=== PATIENT | male | born 1940 | race Caucasian/White ===

== ENCOUNTER → 2020-08-19 08:22 | Outpatient (BNVA) | payer OTHER, SELFPAY | PROVIDERS: PCP Internal Medicine; Referring Provider Internal Medicine; Visit Provider Internal Medicine | DX: I48.21 Permanent atrial fibrillation (principal); Z51.81 Encounter for therapeutic drug level monitoring; Z79.01 Long term (current) use of anticoagulants | CPT/HCPCS: 85610; 99211 ==

== ENCOUNTER → 2020-09-01 13:54 | Outpatient (BNVA) | payer OTHER, MEDICARE, SELFPAY | PROVIDERS: Visit Provider Internal Medicine | DX: I48.21 Permanent atrial fibrillation (principal); Z51.81 Encounter for therapeutic drug level monitoring; Z79.01 Long term (current) use of anticoagulants | CPT/HCPCS: 85610; 99211 ==

== ENCOUNTER → 2020-09-06 11:08 | Outpatient (BNVA) | payer MEDICARE, SELFPAY | PROVIDERS: PCP Internal Medicine; Visit Provider Internal Medicine | DX: I48.21 Permanent atrial fibrillation (principal); Z51.81 Encounter for therapeutic drug level monitoring; Z79.01 Long term (current) use of anticoagulants | CPT/HCPCS: 85610; 99211 ==

== ENCOUNTER → 2020-09-13 14:12 | Outpatient (BNVA) | payer MEDICARE, SELFPAY | PROVIDERS: PCP Internal Medicine; Referring Provider Internal Medicine; Visit Provider Internal Medicine | DX: I48.21 Permanent atrial fibrillation (principal); Z51.81 Encounter for therapeutic drug level monitoring; Z79.01 Long term (current) use of anticoagulants | CPT/HCPCS: 85610; 99211 ==

== ENCOUNTER → 2020-09-24 11:33 | Outpatient (BNVA) | payer MEDICARE, BC, SELFPAY | PROVIDERS: PCP Internal Medicine; Visit Provider Internal Medicine | DX: I48.21 Permanent atrial fibrillation (principal); Z79.01 Long term (current) use of anticoagulants; Z51.81 Encounter for therapeutic drug level monitoring | CPT/HCPCS: 85610; 99211 ==

== ENCOUNTER → 2020-10-07 11:24 | Outpatient (BNVA) | payer MEDICARE, SELFPAY | PROVIDERS: PCP Internal Medicine; Visit Provider Internal Medicine | DX: I48.21 Permanent atrial fibrillation (principal); Z51.81 Encounter for therapeutic drug level monitoring; Z79.01 Long term (current) use of anticoagulants | CPT/HCPCS: 85610; 99212 ==

== ENCOUNTER → 2020-10-11 13:12 | Outpatient (BNVA) | payer MEDICARE, SELFPAY | PROVIDERS: PCP Internal Medicine; Visit Provider Internal Medicine | DX: I48.21 Permanent atrial fibrillation (principal); Z51.81 Encounter for therapeutic drug level monitoring; Z79.01 Long term (current) use of anticoagulants | CPT/HCPCS: 85610; 99211 ==

== ENCOUNTER → 2020-10-18 13:29 | Outpatient (BNVA) | payer MEDICARE, SELFPAY | PROVIDERS: PCP Internal Medicine; Visit Provider Internal Medicine | DX: I48.21 Permanent atrial fibrillation (principal); Z51.81 Encounter for therapeutic drug level monitoring; Z79.01 Long term (current) use of anticoagulants | CPT/HCPCS: 85610; 99211 ==

== ENCOUNTER → 2020-10-26 10:01 | Outpatient (BNVA) | payer MEDICARE, SELFPAY | PROVIDERS: PCP Internal Medicine; Visit Provider Internal Medicine | DX: I48.21 Permanent atrial fibrillation (principal); Z51.81 Encounter for therapeutic drug level monitoring; Z79.01 Long term (current) use of anticoagulants | CPT/HCPCS: 85610; 99211 ==

== ENCOUNTER → 2020-10-28 13:05 | Outpatient (BNVA) | payer MEDICARE, SELFPAY | PROVIDERS: PCP Internal Medicine; Visit Provider Internal Medicine | DX: I48.21 Permanent atrial fibrillation (principal); Z51.81 Encounter for therapeutic drug level monitoring; Z79.01 Long term (current) use of anticoagulants | CPT/HCPCS: 85610; 99211 ==

== ENCOUNTER → 2020-11-09 10:47 | Outpatient (BNVA) | payer MEDICARE, SELFPAY | PROVIDERS: PCP Internal Medicine; Visit Provider Internal Medicine | DX: I48.21 Permanent atrial fibrillation (principal); Z79.01 Long term (current) use of anticoagulants; Z51.81 Encounter for therapeutic drug level monitoring | CPT/HCPCS: 85610; 99211 ==

== ENCOUNTER → 2020-11-11 09:43 | Outpatient (BNVA) | payer MEDICARE, SELFPAY | PROVIDERS: PCP Internal Medicine; Visit Provider Internal Medicine | DX: I48.21 Permanent atrial fibrillation (principal); Z79.01 Long term (current) use of anticoagulants; Z51.81 Encounter for therapeutic drug level monitoring | CPT/HCPCS: 85610; 99211 ==

== ENCOUNTER → 2020-11-15 10:30 | Outpatient (BNVA) | payer MEDICARE, SELFPAY | PROVIDERS: PCP Internal Medicine; Visit Provider Internal Medicine | DX: I48.21 Permanent atrial fibrillation (principal); Z51.81 Encounter for therapeutic drug level monitoring; Z79.01 Long term (current) use of anticoagulants | CPT/HCPCS: 85610; 99211 ==

== ENCOUNTER → 2020-11-25 10:21 | Outpatient (BNVA) | payer MEDICARE, SELFPAY | PROVIDERS: PCP Internal Medicine; Visit Provider Internal Medicine | DX: I48.21 Permanent atrial fibrillation (principal); Z79.01 Long term (current) use of anticoagulants; Z51.81 Encounter for therapeutic drug level monitoring | CPT/HCPCS: 85610; 99211 ==

== ENCOUNTER → 2020-12-09 08:34 | Outpatient (BNVA) | payer MEDICARE, SELFPAY | PROVIDERS: PCP Internal Medicine; Visit Provider Internal Medicine | DX: I48.19 Other persistent atrial fibrillation (principal); Z79.01 Long term (current) use of anticoagulants; Z51.81 Encounter for therapeutic drug level monitoring | CPT/HCPCS: 85610; 99211 ==

== ENCOUNTER → 2020-12-23 08:31 | Outpatient (BNVA) | payer MEDICARE, SELFPAY | PROVIDERS: PCP Internal Medicine; Visit Provider Internal Medicine | DX: I48.21 Permanent atrial fibrillation (principal); Z51.81 Encounter for therapeutic drug level monitoring; Z79.01 Long term (current) use of anticoagulants | CPT/HCPCS: 85610; 99211 ==

== ENCOUNTER → 2021-01-20 07:58 | Outpatient (BNVA) | payer MEDICARE, SELFPAY | PROVIDERS: PCP Internal Medicine; Visit Provider Internal Medicine | DX: I48.21 Permanent atrial fibrillation (principal); Z51.81 Encounter for therapeutic drug level monitoring; Z79.01 Long term (current) use of anticoagulants | CPT/HCPCS: 85610; 99211 ==

== ENCOUNTER → 2021-02-03 08:22 | Outpatient (BNVA) | payer MEDICARE, SELFPAY | PROVIDERS: PCP Internal Medicine; Visit Provider Internal Medicine | DX: I48.21 Permanent atrial fibrillation (principal); Z51.81 Encounter for therapeutic drug level monitoring; Z79.01 Long term (current) use of anticoagulants | CPT/HCPCS: 85610; 99211 ==

== ENCOUNTER → 2021-03-03 08:14 | Outpatient (BNVA) | payer MEDICARE, SELFPAY | PROVIDERS: PCP Internal Medicine; Visit Provider Internal Medicine | DX: I48.21 Permanent atrial fibrillation (principal); Z79.01 Long term (current) use of anticoagulants; Z51.81 Encounter for therapeutic drug level monitoring | CPT/HCPCS: 85610; 99211 ==

== ENCOUNTER 2021-06-07 08:23 | Outpatient (REF) | payer MEDICARE, SELFPAY ==
[2021-06-07 09:30] LABS: MANUAL DIFF FLAG NO
[2021-06-07 09:40] LABS: Basophils Percent Auto 0.5 % (0-2); Eosinophils Absolute Auto 0.2 X10*3/uL (0.0-0.4); Hematocrit 43.1 % (42-52); Hemoglobin 13.8 g/dl (14.0-18.0); Imm Gran Abs Auto 0.03 X10*3/uL (0.00-0.03); Imm Gran Pct Auto 0.5 % (0.0-0.4); Lymphocytes Absolute Auto 1.4 X10*3/uL (1.2-4.9); Lymphocytes Percent Auto 21.6 % (20-40); Mean Corpuscular Hemoglobin 29.3 pg (27.0-33.0); Mean Corpuscular Volume 91.5 fL (80-98); Monocytes Absolute Auto 0.5 X10*3/uL (0.1-1.2); Monocytes Percent Auto 8.3 % (2-11); Neutrophils Absolute Auto 4.2 X10*3/uL (2.0-8.3); Neutrophils Percent Auto 66.1 % (45-73); Platelet Count 160 X10*3/uL (160-400); Red Blood Count 4.71 X10*6/uL (4.60-5.80); Red Cell Distribution Width 13.1 % (11.0-16.0); White Blood Count 6.4 X10*3/uL (4.8-10.8)
[2021-06-07 10:02] LABS: Alanine Aminotransferase 19 U/L (0-40); Albumin Level 4.2 g/dL (3.5-5.0); Alkaline Phosphatase 70 U/L (39-117); Anion Gap 13 (12-20); Aspartate Amino Transferase 20 U/L (5-37); Bilirubin Total 1.5 mg/dL (0.0-1.0); Blood Urea Nitrogen 33 mg/dL (9-16); Carbon Dioxide 25 mmol/L (22-29); Chloride 108 mmol/L (96-108); Cholesterol 198 mg/dL; Estimated Glomerular Filt Rate 36; Glucose Fasting 94 mg/dL (60-99); HDL Cholesterol 52 mg/dL; LDL Cholesterol Calculated 129 mg/dl; Sodium 141 mmol/L (135-145); Total Protein 6.6 g/dL (6.5-8.0); Triglycerides 89 mg/dL
[2021-06-07 10:58] LABS: Glucose Urine UA NEG (NEG); Leukocyte Esterase Urine NEG (NEG); Nitrite Urine NEG (NEG); Specific Gravity - Urine 1.025 (1.005-1.025); Urine Blood NEG (NEG); Urine Ketones NEG (NEG); Urine Protein TRACE MG/DL (NEG-TRACE)
[2021-06-07 11:01] LABS: Appearance Urine CLEAR; Color Urine YELLOW
[2021-06-07 11:18] LABS: RBC Urine 0-2 /HPF (0); Squamous Epithelial Cell Urine TRACE /LPF
== END 2021-06-07 08:24 | disposition home or self-care (01) ==
LOC: HO.LAB 08:23
PROVIDERS: PCP Internal Medicine; Visit Provider Internal Medicine
DX: I48.91 Unspecified atrial fibrillation (principal); Z79.01 Long term (current) use of anticoagulants
CPT/HCPCS: 36415; 80053; 80061; 81001; 85025

== ENCOUNTER 2021-09-13 10:10 | Outpatient (REF) | payer MEDICARE, SELFPAY ==
[2021-09-13 12:07] LABS: Alanine Aminotransferase 17 U/L (0-40); Albumin Level 4.5 g/dL (3.5-5.0); Alkaline Phosphatase 67 U/L (39-117); Anion Gap 12 (12-20); Aspartate Amino Transferase 21 U/L (5-37); Bilirubin Total 1.1 mg/dL (0.0-1.0); Blood Urea Nitrogen 28 mg/dL (9-16); Calcium 9.1 mg/dL (8.4-10.2); Carbon Dioxide 26 mmol/L (22-29); Chloride 107 mmol/L (96-108); Estimated Glomerular Filt Rate 38; Glucose Random 100 mg/dL (60-115); Potassium 4.5 mmol/L (3.3-5.1); Sodium 140 mmol/L (135-145); Total Protein 6.7 g/dL (6.5-8.0)
== END 2021-09-13 10:11 | disposition home or self-care (01) ==
LOC: HO.HMGCLDS 10:10
PROVIDERS: PCP Internal Medicine; Visit Provider Internal Medicine
DX: I48.91 Unspecified atrial fibrillation (principal); N18.30 Chronic kidney disease, stage 3 unspecified; Z79.01 Long term (current) use of anticoagulants
CPT/HCPCS: 36415; 80053

== ENCOUNTER 2022-06-09 07:17 | Outpatient (REF) | payer MEDICARE, SELFPAY ==
[2022-06-09 07:51] LABS: Hematocrit 40.6 % (42.0-52.0); Hemoglobin 13.3 g/dl (14.0-18.0); Mean Corpuscular HGB Conc 32.8 g/dl (31.0-36.0); Mean Corpuscular Hemoglobin 29.7 pg (27.0-33.0); Mean Corpuscular Volume 90.6 fL (80.0-98.0); Mean Platelet Volume 12.3 fL (9.4-12.4); Platelet Count 212 X10*3/uL (160-400); Red Blood Count 4.48 X10*6/uL (4.60-5.80); White Blood Count 8.1 X10*3/uL (4.8-10.8)
[2022-06-09 08:22] LABS: Alanine Aminotransferase 19 U/L (0-40); Albumin Level 4.3 g/dL (3.5-5.0); Alkaline Phosphatase 80 U/L (39-117); Anion Gap 13 (12-20); Aspartate Amino Transferase 21 U/L (5-37); Bilirubin Total 1.3 mg/dL (0.0-1.0); Blood Urea Nitrogen 29 mg/dL (9-16); Calcium 8.9 mg/dL (8.4-10.2); Carbon Dioxide 24 mmol/L (22-29); Chloride 109 mmol/L (96-108); Cholesterol 184 mg/dL; Estimated Glomerular Filt Rate 38; Glucose Fasting 101 mg/dL (60-99); HDL Cholesterol 46 mg/dL; LDL Cholesterol Calculated 121 mg/dl; Potassium 4.5 mmol/L (3.3-5.1); Sodium 141 mmol/L (135-145); Total Protein 6.6 g/dL (6.5-8.0); Triglycerides 85 mg/dL
== END 2022-06-09 07:18 | disposition home or self-care (01) ==
LOC: HO.LAB 07:17
PROVIDERS: PCP Internal Medicine; Visit Provider Internal Medicine
DX: C64.9 Malignant neoplasm of unspecified kidney, except renal pelvis (principal); N18.30 Chronic kidney disease, stage 3 unspecified; M10.9 Gout, unspecified; Z79.01 Long term (current) use of anticoagulants
CPT/HCPCS: 36415; 80053; 80061; 85027

== ENCOUNTER 2022-12-12 06:29 | Outpatient (REF) | payer MEDICARE, SELFPAY ==
[2022-12-12 06:34] LABS: MANUAL DIFF FLAG NO
[2022-12-12 07:33] LABS: Basophils Percent Auto 0.5 % (0-2); Eosinophils Absolute Auto 0.3 X10*3/uL (0.0-0.4); Eosinophils Percent Auto 3.4 % (0-4); Hematocrit 42.2 % (42.0-52.0); Hemoglobin 13.8 g/dl (14.0-18.0); Imm Gran Abs Auto 0.02 X10*3/uL (0.00-0.03); Imm Gran Pct Auto 0.2 % (0.0-0.4); Lymphocytes Absolute Auto 2.5 X10*3/uL (1.2-4.9); Lymphocytes Percent Auto 31.5 % (20-40); Mean Corpuscular HGB Conc 32.7 g/dl (31.0-36.0); Mean Corpuscular Hemoglobin 29.4 pg (27.0-33.0); Mean Corpuscular Volume 89.8 fL (80.0-98.0); Mean Platelet Volume 12.9 fL (9.4-12.4); Monocytes Absolute Auto 0.7 X10*3/uL (0.1-1.2); Monocytes Percent Auto 8.1 % (2-11); Neutrophils Absolute Auto 4.5 x10*3/uL (2.0-8.3); Neutrophils Percent Auto 56.3 % (45-73); Platelet Count 181 X10*3/uL (160-400); Red Cell Distribution Width 13.2 % (11.0-16.0)
[2022-12-12 08:02] LABS: Alanine Aminotransferase 18 U/L (0-40); Albumin Level 4.3 g/dL (3.5-5.0); Alkaline Phosphatase 69 U/L (39-117); Anion Gap 14 (12-20); Aspartate Amino Transferase 19 U/L (5-37); Bilirubin Total 1.2 mg/dL (0.0-1.0); Blood Urea Nitrogen 38 mg/dL (9-16); Calcium 9.1 mg/dL (8.4-10.2); Carbon Dioxide 26 mmol/L (22-29); Chloride 108 mmol/L (96-108); Cholesterol 201 mg/dL; Estimated Glomerular Filt Rate 32; Glucose Fasting 92 mg/dL (60-99); HDL Cholesterol 45 mg/dL; LDL Cholesterol Calculated 134 mg/dl; Potassium 4.5 mmol/L (3.3-5.1); Sodium 143 mmol/L (135-145); Total Protein 6.5 g/dL (6.5-8.0); Triglycerides 110 mg/dL
== END 2022-12-12 06:30 | disposition home or self-care (01) ==
LOC: HO.LAB 06:29
PROVIDERS: PCP Internal Medicine; Visit Provider Internal Medicine
DX: I48.91 Unspecified atrial fibrillation (principal); M10.9 Gout, unspecified; N18.30 Chronic kidney disease, stage 3 unspecified; Z79.01 Long term (current) use of anticoagulants
CPT/HCPCS: 36415; 80053; 80061; 85025

== ENCOUNTER 2022-12-25 13:45 | Outpatient (REF) | payer MEDICARE, SELFPAY ==
--- NOTE | ~2022-12-25 | US_ITS ---
EXAMINATION: US RETROPERITONEAL (RENAL) CLINICAL INFORMATION: Chronic kidney disease, stage 3 unspecified. COMPARISON: None TECHNIQUE: Real-time imaging of the kidneys. FINDINGS: RIGHT KIDNEY: Surgically absent. LEFT KIDNEY: 10.5 x 5.0 x 6.0 cm (SAG x AP x TRV). The kidney is normal in size, contour, and echogenicity. Renal cortical thickness is normal. No hydronephrosis. There is a minimally complex cyst seen at the lower pole of the left kidney measuring 0.9 cm that may have a tiny septation with a small focus of calcification in the wall or possibly an adjacent small stone. Multiple small, nonobstructing stones are seen ranging in size from 1-2 mm. No renal masses. US/US renal LT IMPRESSION: 1. Status post right nephrectomy. 2. Multiple tiny, nonobstructing left renal calculi. 3. Tiny minimally complex cyst lower pole left kidney. This is Bosniak class II and no additional imaging or follow up should be needed.
== END 2022-12-25 13:46 | disposition home or self-care (01) ==
LOC: HO.HMGCX 13:45
PROVIDERS: PCP Internal Medicine; Visit Provider Internal Medicine
DX: N18.30 Chronic kidney disease, stage 3 unspecified (principal); N20.0 Calculus of kidney
CPT/HCPCS: 76775

== ENCOUNTER 2023-06-12 07:08 | Outpatient (REF) | payer MEDICARE, SELFPAY ==
[2023-06-12 07:21] LABS: MANUAL DIFF FLAG NO
[2023-06-12 08:01] LABS: Basophils Percent Auto 0.5 % (0-2); Eosinophils Absolute Auto 0.3 X10*3/uL (0.0-0.4); Eosinophils Percent Auto 3.3 % (0-4); Hematocrit 41.5 % (42.0-52.0); Hemoglobin 13.3 g/dl (14.0-18.0); Imm Gran Abs Auto 0.03 X10*3/uL (0.00-0.03); Imm Gran Pct Auto 0.3 % (0.0-0.4); Mean Corpuscular Hemoglobin 29.4 pg (27.0-33.0); Mean Corpuscular Volume 91.6 fL (80.0-98.0); Mean Platelet Volume 12.4 fL (9.4-12.4); Monocytes Absolute Auto 0.8 X10*3/uL (0.1-1.2); Monocytes Percent Auto 9.2 % (2-11); Neutrophils Absolute Auto 5.6 x10*3/uL (2.0-8.3); Neutrophils Percent Auto 63.7 % (45-73); Platelet Count 160 X10*3/uL (160-400); Red Blood Count 4.53 X10*6/uL (4.60-5.80); Red Cell Distribution Width 13.5 % (11.0-16.0); White Blood Count 8.8 X10*3/uL (4.8-10.8)
[2023-06-12 08:41] LABS: Alanine Aminotransferase 19 U/L (0-40); Albumin Level 4.2 g/dL (3.5-5.0); Alkaline Phosphatase 73 U/L (39-117); Anion Gap 11 (12-20); Aspartate Amino Transferase 20 U/L (5-37); Bilirubin Total 1.3 mg/dL (0.0-1.0); Blood Urea Nitrogen 26 mg/dL (9-16); Calcium 9.3 mg/dL (8.4-10.2); Carbon Dioxide 25 mmol/L (22-29); Chloride 110 mmol/L (96-108); Cholesterol 183 mg/dL; Estimated Glomerular Filt Rate 40; Glucose Fasting 97 mg/dL (60-99); HDL Cholesterol 52 mg/dL; LDL Cholesterol Calculated 115 mg/dl; Potassium 4.1 mmol/L (3.3-5.1); Sodium 142 mmol/L (135-145); Total Protein 6.9 g/dL (6.5-8.0); Triglycerides 84 mg/dL
== END 2023-06-12 07:09 | disposition home or self-care (01) ==
LOC: HO.LAB 07:08
PROVIDERS: PCP Internal Medicine; Visit Provider Internal Medicine
DX: C34.90 Malignant neoplasm of unspecified part of unspecified bronchus or lung (principal); N18.30 Chronic kidney disease, stage 3 unspecified; I48.91 Unspecified atrial fibrillation
CPT/HCPCS: 36415; 80053; 80061; 85025

== ENCOUNTER 2023-06-18 08:50 | Outpatient (AMB) | payer MEDICARE, SELFPAY ==
--- NOTE | 2023-06-18 08:52 | A.OFFVIS_ITS ---
Intake Vital Signs 06/18/23 08:57 Height 5 ft 6 in Weight 150 lb 8 oz BMI 24.3 BP 124/78 Blood Pressure Location Lt brachial Position Sitting Pulse 76 Pulse Source Pulse Oximeter Pulse Oximetry (%) 98 Intake Visit Reasons: AWV Intake Note: patient is here for AWV Accompanied by: Self / Same As Patient Allergies No Known Allergies Allergy (Verified 06/18/23 08:52) Medication List - Last Reconciled 06/18/23 by Adriana Cox MD apixaban (Eliquis) 5 mg PO BID metoprolol succinate ER 25 mg PO DAILY multivitamin 1 tab PO DAILY vitamin B complex 1 tab PO .every other day Do you need a note to return to daycare/school/sports/work: No HPI AWV HPI Details Pt presents for annualInitiated the conversation about Advanced Directives. Advanced Directives help? patients prepare for current and future d ecisions about their medical treatment? and place of care. Discussed with patient that it is a process where a patients? current condition and prognosis are reviewed, their wishes for information? regarding their illness are elicited, and likely medical dilemmas are presented? and options discussed. The form can be amended as needed, reviewed yearly and? make changes as needed IPPE/AWV ? year old presents? for her ? Annual? Wellness Visit, initial visit.? Medical / Social History Reviewed? Past Medical History ?Yes? . ? [place]? of Care / Care Team list updated ?Yes . ? Surgical/Hospitalization? History ?Yes . ? Current Medications? (including OTC and supplements) ?Yes . ? Family History ?Yes? . ? Tobacco? Control form ?Yes . ? AUDIT-C (Alcohol use) form? ?Yes . ? Illicit drug use in Social? History ?Yes . ? Current diagnosis of? depression? ?No ? Appropriate PHQ2/PHQ9? completed ?Yes . ? Data entered by ?Medical? Manager Cancer and reviewed by provider ? Fall Risk ? Fall? History? Have you had any falls with? injury in the past year? ?No . ? Have you had two or more? falls in the past year? ?No . ? Fall Risk Assessment: ?No? falls in the past year . ? HRA filled out by? the patient, reviewed by Provider and scanned. ? IPPE/AWV ? Balance? Romberg? ?Yes . ? Tandem? walk ?Yes . ? Walk and? Turn ?Yes . ? Rise from? sit to stand ?Yes . ?Vision? Corrective? lens ?Yes ? Vision? screen ? Up-to-date, has an appointment [] for vision? screening and glaucoma screening ?Hearing? Whisper? test ?pass .? Initiated the conversation about Advanced Directives. Advanced Directives help? patients prepare for current and future decisions about their medical treatment? and place of care. Discussed with patient that it is a process where a patients? current condition and prognosis are reviewed, their wishes for information? regarding their illness are elicited, and likely medical dilemmas are presented? and options discussed. The form can be amended as needed, reviewed yearly and? make changes as needed Written? Plan?Completed. See Patient? Documents. [facility] Medical History Annual physical exam Atrial fibrillation Chronic renal disease, stage 3, moderately decreased glomerular filtration rate (GFR) between 30-59 mL/min/1.73 square meter Gross hematuria Lung cancer Nephrolithiasis Renal cell cancer Surgical History H/O colonoscopy History of parathyroidectomy Family History Father No problems noted. Mother Heart problem Social History Housing: House Alcohol intake: current Alcohol intake frequency: a few times a week Alcohol type: wine Patient Tobacco Use Status: Former Tobacco user e-Cigarette/Vaping Use: Never Used Current occupational status: retired Cognitive needs: No Hearing needs: No Vision needs: No Questionnaire Medicare Wellness Checkup What is your age?: 81 or older What gender do you identify with?: male During the past 4 weeks, how much have you been bothered by emotional problems such as feeling anxious, depressed, irritable, sad or downhearted, and blue?: not at all During the past 4 weeks, has your physical & emotional health limited your social activities with family, friends, neighbors, or groups?: not at all During the past 4 weeks, how much bodily pain have you generally had?: no pain During the past 4 weeks, was someone available to help you if you needed & wanted help?: yes, as much as I wanted During the past 4 weeks, what was the hardest physical activity you could do for at least 2 minutes?: heavy Can you get to places out of walking distance without help? (For eg., can you travel alone on buses, taxis or drive your car?): Yes Can you go shopping for groceries or clothes without someone's help?: Yes Can you prepare your own meals?: Yes Can you do your housework without help?: Yes Because of any health problems, do you need the help of another person with your personal care needs such as eating, bathing, dressing or getting around the house?: No Can you handle your own money without help?: Yes During the past 4 weeks, how would you rate your health in general?: very good During the past 4 weeks how have things been going for you?: pretty well Are you having difficulties driving your car?: no Do you always fasten your seat belt when you are in a car?: yes, usually During past 4 weeks, have you been bothered by the following: never: Falling or dizzy when standing up and Sexual problems? Mini Mental State Exam (MMSE) Orientation What is the (year) (season) (date) (day) (month)?: year, season, date, day and month Where are we (state) (county) (town or city) (hospital) (floor)?: state, county, town or city, hospital/clinic and floor Registration Name of 3 unrelated objects clearly and slowly, then ask patient to repeat all 3 of them. (1st repeat determines score. Make sure they can repeat all three): object 1, object 2 and object 3 Attention & Calculation (CHOOSE ONE) Spell WORLD backwards (DLROW): 5 letters Recall Ask patient to repeat the 3 items from question #3.: object 1, object 2 and object 3 Language Show patient a wristwatch & ask what it is. Repeat for pencil.: watch and pencil Ask the patient to repeat the phrase 'No ifs, ands, or buts' after you.: correct Ask the patient to 'take a piece of paper with their right hand' 'fold paper in half' 'place paper on floor': take paper in right hand, fold paper in half and place paper on floor Print the sentence 'CLOSE YOUR EYES' on a piece. If patient actually closes eyes then score.: followed written direction Give patient a blank piece of paper & ask to write a sentence. Score if it cont ains a noun & verb.: sentence contains subject and verb Score Score: 29 Review of Systems Const All systems reviewed & are unremarkable except as noted in HPI and below Reports no additional complaints Eyes Reports no additional complaints ENT Reports no additional complaints Card Reports no additional complaints Resp Reports no additional complaints GI Reports no additional complaints Reports no additional complaints Physical Exam Vital Signs: Last Vital Signs Pulse 76 06/18/23 08:57 BP 124/78 06/18/23 08:57 Pulse Ox 98 06/18/23 08:57 BMI result Body Mass Index 24.3 Const General: no acute distress HEENT Head: Yes normal to inspection Eyes General: appearance normal, both eyes and all related structures Neck Neck: Yes no lymphadenopathy and Yes supple Resp Effort & Inspection: normal respiratory effort Auscultation: clear to auscultation bilaterally Cardio Rhythm: regular rhythm Heart sounds: S1 normal heart sound present and S2 normal heart sound present Extrem General: Yes no clubbing, cyanosis or edema Assessment & Plan Assessment & Plan (1) Chronic renal disease, stage 3, moderately decreased glomerular filtration rate (GFR) between 30-59 mL/min/1.73 square meter: Comment: Monitor renal function function Code(s): N18.30 - Chronic kidney disease, stage 3 unspecified (2) Atrial fibrillation: Comment: Dr. Pham Code(s): I48.91 - Unspecified atrial fibrillation Plan: Continue Eliquis and metoprolol (3) Annual physical exam: Code(s): Z00.00 - Encounter for general adult medical examination without abnormal findings Plan: Well-balanced diet regular physical activity discussed with the patient (4) Lung cancer: Comment: s/p R lobectomy for non small ca 10/2020 f/u [facility], CT SCAN Q 6 months Code(s): C34.90 - Malignant neoplasm of unspecified part of unspecified bronchus or lung (5) Renal cell cancer: Comment: s/p R nephrectomy 09/2020 f/u [facility] Code(s): C64.9 - Malignant neoplasm of unspecified kidney, except renal pelvis (6) Anemia: Code(s): D64.9 - Anemia, unspecified Plan: Check iron studies B12 level (7) Abdominal pain: Code(s): R10.9 - Unspecified abdominal pain Plan: Check H pylori Orders: Orders Vitamin B12 and Folate Today D64.9 - Anemia, unspecified, Z00.00 - Encounter for general adult medical examination without abnormal findings IRON PROFILE Today D64.9 - Anemia, unspecified, Z00.00 - Encounter for general adult medical examination without abnormal findings H pylori Ag Stool Today D64.9 - Anemia, unspecified, R10.9 - Unspecified abdominal pain PSA,Total (Free>4and<10) Today D64.9 - Anemia, unspecified TSH reflex Free T4 Today D64.9 - Anemia, unspecified Coding Level of Care Code Medicare Subsequent (G0439) Diagnoses Chronic renal disease, stage 3, moderately decreased glomerular filtration rate (GFR) between 30-59 mL/min/1.73 square meter N18.30 Atrial fibrillation I48.91 Annual physical exam Z00.00 Lung cancer C34.90 Renal cell cancer C64.9 Anemia D64.9 Abdominal pain R10.9 CPT Codes Advance Care Planning - Time spent: 1-15 minutes, not on file ([id number]) Advance Care Planning Advance Care Planning discussion: Exists, not on file Forms completed: Health Care Proxy Time spent: 1-15 minutes, not on file
[2023-06-18 08:57] VITALS: BP 124/78; PULSE 76; O2SAT 98; BMI 24.3
== END 2023-06-18 09:38 | disposition home or self-care (01) ==
PROVIDERS: Visit Provider Internal Medicine
DX: Z00.00 Encounter for general adult medical examination without abnormal findings (principal); N18.30 Chronic kidney disease, stage 3 unspecified; C34.90 Malignant neoplasm of unspecified part of unspecified bronchus or lung; I48.91 Unspecified atrial fibrillation; C64.9 Malignant neoplasm of unspecified kidney, except renal pelvis; D64.9 Anemia, unspecified; R10.9 Unspecified abdominal pain
CPT/HCPCS: 1124F; G0439

== ENCOUNTER 2023-06-18 09:25 | Outpatient (REF) | payer MEDICARE, SELFPAY ==
[2023-06-18 12:29] LABS: PSA,Total (Free>4and<10) 3.96 ng/mL (0.00-4.00)
[2023-06-18 13:13] LABS: Iron 88 mcg/dL (45-160); Percent Iron Saturation 31 % (15-50); Total Iron Binding Capacity 287 mcg/dL (228-428); Unsaturated Iron Binding 199 ug/dL
[2023-06-18 13:17] LABS: TSH reflex Free T4 0.73 uIU/mL (0.32-4.0)
[2023-06-18 13:39] LABS: Folate 15.8 ng/mL (> or = 4.0); Vitamin B12 994 pg/mL (200-900)
== END 2023-06-18 09:26 | disposition home or self-care (01) ==
LOC: HO.HMGCLDS 09:25
PROVIDERS: PCP Internal Medicine; Visit Provider Internal Medicine
DX: Z00.00 Encounter for general adult medical examination without abnormal findings (principal); Z12.5 Encounter for screening for malignant neoplasm of prostate; D64.9 Anemia, unspecified
CPT/HCPCS: 36415; 82607; 82746; 83540; 84153; 84443

== ENCOUNTER 2023-06-19 09:26 | Outpatient (REF) | payer MEDICARE, SELFPAY | END 2023-06-19 09:27 | disposition home or self-care (01) | LOC: HO.LNP 09:26 | PROVIDERS: Visit Provider Internal Medicine | DX: R10.9 Unspecified abdominal pain (principal); D64.9 Anemia, unspecified | CPT/HCPCS: 87338 ==

== ENCOUNTER 2023-09-19 10:16 | Outpatient (AMB) | payer MEDICARE, SELFPAY ==
--- NOTE | 2023-09-19 10:24 | MHC.OFFVIS ---
Intake Vital Signs 09/19/23 10:34 Height 5 ft 6 in Weight 151 lb BMI 24.4 BP 127/66 Blood Pressure Location Rt brachial Position Sitting Pulse 69 Intake Visit Reasons: Hernia Intake Note: This patient presents for an assessment for a hernia. Patient c/o; reports acid reflux, ? hernia, reports no bulge. Physical Medicine Specialist Required: No Accompanied by: Self / Same As Patient Allergies No Known Allergies Allergy (Verified 09/19/23 10:31) Medication List - Last Reconciled 09/19/23 by Nakul Harrington MD amoxicillin 1,000 mg (2 x 500 mg) PO BID 2 weeks apixaban (Eliquis) 5 mg PO BID clarithromycin 500 mg PO BID metoprolol succinate ER 25 mg PO DAILY multivitamin 1 tab PO DAILY omeprazole 20 mg PO DAILY vitamin B complex 1 tab PO .every other day HPI Hernia HPI Details 83-year-old male self-referred for a left inguinal hernia. He has noticed this reducible mass in his left groin for about a year and a half now. He says that this causes some discomfort whenever he is coughing. He is contemplating on having this repaired. He denies GI complaints He does have a history of a right nephrectomy for renal cell cancer in [email or web address] in 2020. He had a lobectomy for some lung cancer as well in the same year. He is on anticoagulation with Eliquis for atrial fibrillation. He otherwise feels well overall and says he is still very active. [facility] Medical History (Updated 09/19/23 @ 10:52 by Nakul Harrington MD) Left inguinal hernia Chronic renal disease, stage 3, moderately decreased glomerular filtration rate (GFR) between 30-59 mL/min/1.73 square meter Annual physical exam Lung cancer Renal cell cancer Nephrolithiasis Gross hematuria Atrial fibrillation Surgical History H/O colonoscopy History of parathyroidectomy Family History (Updated 09/19/23 @ 10:36 by MARILIN Hansen) Father No problems noted. Mother Heart problem Brother Prostate cancer metastatic to bone Social History Housing: House Alcohol intake: current Alcohol intake frequency: a few times a week Alcohol type: wine Patient Tobacco Use Status: Former Tobacco user e-Cigarette/Vaping Use: Never Used Current occupational status: retired Cognitive needs: No Hearing needs: No Vision needs: No Review of Systems Const Denies chills and Denies fever(s) Card Denies chest pain, Denies dyspnea and Denies dyspnea on exertion Resp Denies cough, Denies dyspnea and Denies dyspnea on exertion GI Denies hematochezia and Denies change in bowel habits Denies hematuria and Denies difficulty urinating Musc Denies back pain and Denies limited range of motion Neuro Denies focal weakness and Denies convulsions Psych Denies depression and Denies mood swings Physical Exam Const General: comfortable and no acute distress Orientation/consciousness: patient oriented x3 Neck Neck: Yes no lymphadenopathy Resp Auscultation: clear to auscultation bilaterally Cardio Rhythm: regular rhythm GI Other: Reducible right inguinal hernia, large, more obvious with Valsalva Palpation (GI): Soft to palpation, nontender and no guarding Neuro General: patient oriented x3 Assessment & Plan Assessment & Plan (1) Left inguinal hernia: Code(s): K40.90 - Unilateral inguinal hernia, without obstruction or gangrene, not specified as recurrent Plan: He has a large reducible left inguinal hernia. He now wants to proceed with repair. He says that he this cause some discomfort when he coughs. I explained the technique of repair of the hernia with mesh. I reviewed the risks including but not limited to bleeding, infections, due to other organs including bowel, poor healing, recurrence, postop pain, as well as the benefits and alternatives. He wants to proceed He is on Eliquis so we will hold this for 2 days prior to his procedure. We will discuss this with his primary care physician. Coding Level of Care Code New Pt Level 3 (16914) Diagnoses Left inguinal hernia K40.90
[2023-09-19 10:34] VITALS: BP 127/66; PULSE 69; BMI 24.4
== END 2023-09-19 10:48 | disposition home or self-care (01) ==
PROVIDERS: PCP Internal Medicine; Visit Provider Surgery
DX: K40.90 Unilateral inguinal hernia, without obstruction or gangrene, not specified as recurrent (principal)
CPT/HCPCS: 99203

== ENCOUNTER → 2023-09-19 10:16 | Outpatient (BNVA) | payer MEDICARE, SELFPAY | PROVIDERS: PCP Internal Medicine; Visit Provider Surgery | DX: K40.90 Unilateral inguinal hernia, without obstruction or gangrene, not specified as recurrent (principal); I48.91 Unspecified atrial fibrillation; Z79.01 Long term (current) use of anticoagulants | CPT/HCPCS: 99202 ==

== ENCOUNTER 2023-12-04 05:49 | Day surgery (SDC) | payer MEDICARE, SELFPAY ==
[2023-11-30 11:21] VITALS: BMI 24.4
[2023-12-04] VITALS (7 sets, daily range): BP systolic 105–143; BP diastolic 47–102; PULSE 68–83; RESP 16–18; TEMP 36.3–36.5; O2SAT 96–100; BMI 25.1
--- NOTE | 2023-12-04 06:02 | ECG_ITS ---
Test Reason : afib Blood Pressure : / mmHG Vent. Rate : 067 BPM Atrial Rate : 000 BPM P-R Int : 000 ms QRS Dur : 074 ms QT Int : 400 ms P-R-T Axes : 000 037 001 degrees QTc Int : 422 ms Atrial fibrillation with premature ventricular or aberrantly conducted complexes Abnormal ECG No previous ECGs available Referred By: Carolin Jaquez Electronically Signed By:OIL COBOS
[2023-12-04] MEDS: Lactated Ringers 1,000 ML 100 ML IVCONT (06:21)
--- NOTE | 2023-12-04 07:25 | P.CONAN_ITS ---
Documented by User: Carolin Jaquez NP 12/03/23 09:04 HPI - Anesthesia Eval Consult details Narrative: 83yo M for Left Hernia Repair Inguinal with mesh Eliquis for afib CKD St 3 Lung cancer s/p Right lobectomy 2019 [facility] Active Problems Active Problems: All Active Problems (Updated 09/19/23 @ 10:52 by Nakul Harrington MD) Left inguinal hernia (Acute) Abdominal pain (Acute) Anemia (Acute) Nephrolithiasis (Acute) Gout (Acute) Chronic renal disease, stage 3, moderately decreased glomerular filtration rate (GFR) between 30-59 mL/min/1.73 square meter (Acute) Atrial fibrillation (Acute) Annual physical exam (Acute) Lung cancer (Acute) Renal cell cancer (Acute) Current use of anticoagulant therapy (Acute) Current use of anticoagulant therapy (Acute) Past Medical History Medical History Left inguinal hernia Chronic renal disease, stage 3, moderately decreased glomerular filtration rate (GFR) between 30-59 mL/min/1.73 square meter Annual physical exam Lung cancer Renal cell cancer Nephrolithiasis Gross hematuria Atrial fibrillation Family History Family History (Updated 09/19/23 @ 10:36 by MARILIN Hansen) Father No problems noted. Mother Heart problem Brother Prostate cancer metastatic to bone Surgical History Surgical History (Updated 12/04/23 @ 06:39 by Hleen Jolley RN) History of lobectomy of lung History of right nephrectomy H/O colonoscopy History of parathyroidectomy Social History Social History Housing: House Alcohol intake: current Alcohol intake frequency: a few times a week Alcohol type: wine Patient Tobacco Use Status: Former Tobacco user e-Cigarette/Vaping Use: Never Used Are you DNR?: No Advance Directives: No Advance Directives Information Provided: Yes Nutrition Risks: No Nutritional Risk Current occupational status: retired Cognitive needs: No Hearing needs: No Vision needs: No Meds Allergies Allergy/AdvReac Type Severity Reaction Status Date / Time No Known Allergies Allergy Verified 12/04/23 06:15 Home Medications Medication Instructions Recorded Confirmed Last Taken Type multivitamin 1 tab PO DAILY 06/16/22 12/04/23 Unknown History Exam Height,Weight and Vital Signs: Height 5 ft 6 in Weight 68.492 kg Pertinent Lab Results Pertinent Lab Results: Laboratory Tests 06/12/23 07:20 WBC 8.8 Hgb 13.3 L Hct 41.5 L Plt Count 160 Sodium 142 Potassium 4.1 Chloride 110 H Carbon Dioxide 25 BUN 26 H Creatinine 1.66 H Assessment and Plan Assessment Anesthesia Assessment: Chart Reviewed Documented by User: Anna Rivera, 12/04/23 07:29 [facility] Past Medical History Medical History Left inguinal hernia Chronic renal disease, stage 3, moderately decreased glomerular filtration rate (GFR) between 30-59 mL/min/1.73 square meter Annual physical exam Lung cancer Renal cell cancer Nephrolithiasis Gross hematuria Atrial fibrillation Family History Family History (Updated 09/19/23 @ 10:36 by MARILIN Hansen) Father No problems noted. Mother Heart problem Brother Prostate cancer metastatic to bone Family history of problems with anesthesia: No Surgical History Surgical History (Updated 12/04/23 @ 06:39 by Helen Jolley RN) History of lobectomy of lung History of right nephrectomy H/O colonoscopy History of parathyroidectomy History of Problems with Anesthesia: No Social History Social History Housing: House Alcohol intake: current Alcohol intake frequency: a few times a week Alcohol type: wine Patient Tobacco Use Status: Former Tobacco user e-Cigarette/Vaping Use: Never Used Are you DNR?: No Advance Directives: No Advance Directives Information Provided: Yes Nutrition Risks: No Nutritional Risk Current occupational status: retired Cognitive needs: No Hearing needs: No Vision needs: No Meds Allergies Allergy/AdvReac Type Severity Reaction Status Date / Time No Known Allergies Allergy Verified 12/04/23 06:15 Home Medications Medication Instructions Recorded Confirmed Last Taken Type multivitamin 1 tab PO DAILY 06/16/22 12/04/23 Unknown History Exam Exam Date and Time: December 04, [id number] Height,Weight and Vital Signs: Height 5 ft 6 in Weight 68.492 kg Height 5 ft 6 in Weight 70.67 kg Vital Signs Temperature 97.6 F 12/04/23 06:15 Pulse Rate 73 12/04/23 06:15 Respiratory Rate 18 12/04/23 06:15 Blood Pressure 141/102 H 12/04/23 06:15 Pulse Oximetry 98 12/04/23 06:15 Oxygen Delivery Method Room Air 12/04/23 06:15 Temperature 97.6 F 12/04/23 06:15 Pulse Rate 73 12/04/23 06:15 Respiratory Rate 18 12/04/23 06:15 Blood Pressure 143/61 H 12/04/23 06:36 Pulse Oximetry 98 12/04/23 06:15 Oxygen Delivery Method Room Air 12/04/23 06:15 Airway Mallampati Class: I TM Dist: >3cm Neck ROM: Full Denture: Upper and Lower Heart: S1S2 Lungs: CTAB Assessment and Plan Assessment Anesthesia Assessment: Anesthesia Plan Discussed and Chart Reviewed Final Anesthetic Review Family History of Problems with Anesthesia: No History of Problems with Anesthesia: No NPO: Yes ASA Class: III Final Preanesthetic Review: No Changes in Pt Med Stat, Meds/Allgs Chart Reviewed, Consent Obtained/Reviewed and Anes Risks/Benef Reviewed Patient Risk: Intermediate Procedure Risk: Low Anesthetic Plan Anesthetic Plan: Agree w/ Assess. and Plan Disposition: Standard PACU
--- NOTE | 2023-12-04 07:41 | MHC.SHP ---
Pre-Procedural Eval Section A Date of Service: 12/04/23 Section B Chief Complaint: Unilateral inguinal hernia, without obstruction Details of Present Illness: Has a reducible mass on the left groin Relevant Social History: None Present Medications: see Short Stay Collaborative assessment (Gout, chronic renal disease, atrial fibrillation, was on Eliquis) Allergies: Allergies Allergy/AdvReac Type Severity Reaction Status Date / Time No Known Allergies Allergy Verified 12/04/23 06:15 Review of Systems Sugical H&P ROS: Negative: Constitution, Cardiovascular, Respiratory, Neurological, Psychiatric, Hem-Onc, Allergic/Immunologic, Gastrointestinal, Genitourinary, Musculoskeletal, Integumentary, Endocrine and Eyes/Ears/Nose/Throat Exam Surgical H&P Exam: Normal: HEENT, Normal: Heart, Normal: Lungs, Normal: Extremities, Normal: Skin and Normal: Neurological and Significant Findings: Abdomen (Reducible left inguinal hernia) Plan Diagnosis/Plan: Unchanged I have reviewed the history and physical and performed a pertinent physical examination on my patient. No changes have occurred unless specified. Time Spent With Patient Time: Total time managing care of this patient today ____ minutes.
--- NOTE | 2023-12-04 08:17 | P.OP_ITS ---
Operative Note Operative Note Date of Service: 12/04/23 Narrative: Preop diagnosis: Left Inguinal hernia Postop diagnosis: Left inguinal hernia, direct Procedure: Repair of left inguinal hernia with mesh Surgeon: Nakul Harrington MD registrar assistant: STEPHANIE Peterson The patient is an 83-year-old male with a reducible mass on the left groin consistent with a left inguinal hernia. He wanted to proceed with repair. He understood the technique of repair with mesh he was aware of the risks, benefits, and alternatives. He is Eliquis was on hold for 48 hours He was brought to the operating room. He was placed supine under general anesthesia via laryngeal mask airway. The right groin was prepped and draped in the usual sterile fashion. A surgical time-out was done. The patient received cefazolin 2 g IV preoperatively. I infiltrated the planned line of incision with lidocaine 1%. I made a short incision along an imaginary line from the anterior superior iliac spine to the pubic ramus using a blade 15. This was carried down through the full-thickness of the skin and subcutaneous fat with electrocautery. I visualized the external oblique aponeurosis. I bluntly dissected this with a gauze to expose the external ring. I then made an incision on the external oblique aponeurosis using a blade 15 and extended this inferomedially to connect with the external ring. The inguinal canal was therefore entered . I bluntly dissected the spermatic cord and its contents with an index finger until was able to pass a Khloe drain around this. This Khloe drain was used for retraction. I identified the vas deferens and its accompanying vessels. I was able to visualized the fat containing hernia. This was along thefloor of the inguinal canal and was therefore a direct hernia. I gently this from the rest of the cord contents with blunt dissection all the way down to the level of the floor.. I was able to reduce the hernia completely. I reinforced the defect on the floor with a large-sized Prolene plug. The plug was secured with Prolene 2 sutures to the shelving edge of the inguinal laterally and the internal oblique superiorly and medially using the inner leaves of the plug. I then used a keyhole mesh to reinforce the en tire floor. The tails of the mesh were passed around the cord at the level of the internal ring. I secured these together with Prolene 2 sutures. I then secured the mesh to the shelving edge of the inguinal ligament laterally and the internal oblique superiorly and medially as well as the pubic ramus inferomedially with Prolene 2-0 sutures . I observed for hemostasis. I then irrigated. Once hemostasis was confirmed, I closed the external oblique aponeurosis with a running Polysorb 2-0 stitch to re-create the external ring. The subcutaneous layer was reapposed with Polysorb 3-0 interrupted sutures. Skin closure was achieved with Polysorb 4-0 subcuticular running sutures. Steri-Strips and dressings were applied. The area was infiltrated with Marcaine 0.5% for postop analgesia. The procedure was completed. The patient tolerated the procedure well. There were no immediate complications. Initial and final counts of sponges and instruments were correct. Estimated blood loss was about 10 cc. The patient was extubated without difficulty and transferred to the recovery room with stable vital signs.
[2023-12-04] MEDS: oxyCODONE HCl Immed Release 5 MG TABLET PO (08:48)
== END 2023-12-04 09:31 | disposition home or self-care (01) ==
PROVIDERS: PCP Internal Medicine; Visit Provider Surgery
PROC: (CPT 49505; principal; 2023-12-04 07:30)
DX: K40.90 Unilateral inguinal hernia, without obstruction or gangrene, not specified as recurrent (principal); I48.91 Unspecified atrial fibrillation; N18.30 Chronic kidney disease, stage 3 unspecified; Z85.528 Personal history of other malignant neoplasm of kidney; Z90.5 Acquired absence of kidney; Z87.891 Personal history of nicotine dependence; Z85.118 Personal history of other malignant neoplasm of bronchus and lung; Z79.01 Long term (current) use of anticoagulants; Z79.899 Other long term (current) drug therapy
CPT/HCPCS: 49505; 93005; J0131; J0690; J1100; J2371; J2405; J2704; J2795; J3010

== ENCOUNTER → 2023-12-04 05:49 | Outpatient (BNV) | payer MEDICARE, SELFPAY | PROVIDERS: PCP Internal Medicine; Visit Provider Surgery | DX: K40.90 Unilateral inguinal hernia, without obstruction or gangrene, not specified as recurrent (principal) | CPT/HCPCS: 49505 ==

== ENCOUNTER → 2023-12-04 06:02 | Outpatient (BNV) | payer MEDICARE, SELFPAY | PROVIDERS: PCP Internal Medicine; Visit Provider Internal Medicine | DX: I48.91 Unspecified atrial fibrillation (principal); R94.31 Abnormal electrocardiogram [ECG] [EKG] | CPT/HCPCS: 93010 ==

== ENCOUNTER 2023-12-17 13:16 | Outpatient (AMB) | payer MEDICARE, SELFPAY ==
--- NOTE | 2023-12-17 13:18 | MHC.OFFVIS ---
Intake Vital Signs 12/17/23 13:25 Weight 149 lb BP 137/79 Blood Pressure Location Rt brachial Position Sitting Pulse 89 Intake Visit Reasons: S/P LIH w/mesh Intake Note: Patient is seen in office for post op assessment post left inguinal hernia repair. Pt c/o: reports no complaints at this time pertaining to surgery. Underwriting Analyst Required: No Accompanied by: Self / Same As Patient Allergies No Known Allergies Allergy (Verified 12/17/23 13:26) HPI S/P LIH w/mesh HPI Details He underwent repair of a left inguinal hernia with mesh last December 04, 2022. He is here for a postop visit. He states he is doing well at this time. He denies any significant pain. He has good GI functions. [facility] Medical History Left inguinal hernia Chronic renal disease, stage 3, moderately decreased glomerular filtration rate (GFR) between 30-59 mL/min/1.73 square meter Annual physical exam Lung cancer Renal cell cancer Nephrolithiasis Gross hematuria Atrial fibrillation Surgical History Hx of left inguinal hernia repair (12/04/23) History of lobectomy of lung History of right nephrectomy H/O colonoscopy History of parathyroidectomy Family History Father No problems noted. Mother Heart problem Brother Prostate cancer metastatic to bone Social History Housing: House Alcohol intake: current Alcohol intake frequency: a few times a week Alcohol type: wine Patient Tobacco Use Status: Former Tobacco user e-Cigarette/Vaping Use: Never Used Current occupational status: retired Cognitive needs: No Hearing needs: No Vision needs: No Review of Systems Const Denies chills and Denies fever(s) Card Denies chest pain, Denies dyspnea and Denies dyspnea on exertion Resp Denies cough, Denies dyspnea and Denies dyspnea on exertion GI Denies hematochezia and Denies change in bowel habits Denies hematuria and Denies difficulty urinating Musc Denies back pain and Denies limited range of motion Neuro Denies focal weakness and Denies convulsions Psych Denies depression and Denies mood swings Physical Exam Const General: comfortable and no acute distress GI Other: Left inguinal hernia repair site incision clean, repair intact, not infected Palpation (GI): Soft to palpation, not firm and nontender Assessment & Plan Assessment & Plan (1) Left inguinal hernia: Code(s): K40.90 - Unilateral inguinal hernia, without obstruction or gangrene, not specified as recurrent Plan: Status post repair with mesh. His incision is well healed. The repair site is intact. I would advised him to avoid lifting of anything more than 20 lb for at least 3 more weeks. He can otherwise follow up on a p.r.n. basis. Coding Level of Care Code Global (14238) Diagnoses Left inguinal hernia K40.90
[2023-12-17 13:25] VITALS: BP 137/79; PULSE 89
== END 2023-12-17 13:33 | disposition home or self-care (01) ==
PROVIDERS: PCP Internal Medicine; Visit Provider Surgery
DX: K40.90 Unilateral inguinal hernia, without obstruction or gangrene, not specified as recurrent (principal)
CPT/HCPCS: 99024

== ENCOUNTER → 2023-12-17 13:16 | Outpatient (BNVA) | payer MEDICARE, SELFPAY | PROVIDERS: PCP Internal Medicine; Visit Provider Surgery | DX: Z48.815 Encounter for surgical aftercare following surgery on the digestive system (principal); Z98.890 Other specified postprocedural states | CPT/HCPCS: 99212 ==

== ENCOUNTER 2024-02-29 14:20 | Outpatient (AMB) | payer MEDICARE, SELFPAY ==
--- NOTE | 2024-02-29 14:34 | MHC.PC.OV ---
Vital Signs 02/29/24 14:36 Height 5 ft 6 in Weight 153 lb BMI 24.7 BP 118/76 Blood Pressure Location Lt brachial Position Sitting Pulse 95 Pulse Source Pulse Oximeter Pulse Oximetry (%) 96 Oxygen Delivery Method Room Air Intake Visit Reasons: Swollen foot Intake Note: Pt is here today for a sick visit. Pt c/o R foot pain and swelling. Allergies No Known Allergies Allergy (Verified 02/29/24 14:37) Medication List - Last Reconciled 02/29/24 by Adriana Cox MD apixaban (Eliquis) 5 mg PO BID metoprolol succinate ER 25 mg PO DAILY multivitamin 1 tab PO DAILY oxycodone-acetaminophen 5-325 mg (Percocet) 1 tab PO Q4-6H PRN prednisone orally daily; 4 tabl x 3days, 3 tabl qd x 3 days, then 2 tabl qd for 2 days, then 1 tabl qd x 3 days Tobacco use date assessed: 02/29/24 Dental Screening Dental Screen Date: 02/29/24 Did you have a dental visit in the last 12 months?: Yes Did you have a dental problem in the last 6 months where you did not have access to dental care?: No Was dental information given to patient?: Patient has dentist HPI Swollen foot HPI Details Pt c/o R foot dorsum swelling and pain for 1 day. Pt has been eating more seafood lately. he has a history of gout in past the last 1 a few years ago. AFib is stable on metoprolol . patient is anticoagulated on Eliquis [facility] Medical History Left inguinal hernia Chronic renal disease, stage 3, moderately decreased glomerular filtration rate (GFR) between 30-59 mL/min/1.73 square meter Annual physical exam Lung cancer Renal cell cancer Nephrolithiasis Gross hematuria Atrial fibrillation Surgical History Hx of left inguinal hernia repair (12/04/23) History of lobectomy of lung History of right nephrectomy H/O colonoscopy History of parathyroidectomy Family History Father No problems noted. Mother Heart problem Brother Prostate cancer metastatic to bone Social History Housing: House Alcohol intake: current Alcohol intake frequency: a few times a week Alcohol type: wine Patient Tobacco Use Status: Former Tobacco user e-Cigarette/Vaping Use: Never Used Current occupational status: retired Cognitive needs: No Hearing needs: No Vision needs: No Questionnaire PHQ-9 Over the last 2 weeks, how often have you been bothered by any of the following problems? 1. Little interest or pleasure in doing things: not at all 2. Feeling down, depressed, or hopeless: not at all 3. Trouble falling or staying asleep, or sleeping too much: not at all 4. Feeling tired or having little energy: not at all 5. Poor appetite or overeating: not at all 6. Feeling bad about yourself - or that you are a failure or have let yourself or your family down: not at all 7. Trouble concentrating on things, such as reading the newspaper or watching television: not at all 8. Moving or speaking so slowly that other people could have noticed. Or the opposite - being so fidgety or restless that you have been moving around a lot more than usual: not at all 9. Thoughts that you would be better off or of hurting yourself in some way: not at all Total score: 0 Depression Screening Interpretation: Negative Depression Screening Done: Yes Source: Developed by Drs. Gray Carmichael, Roxanna Bacon, Paulie John and colleagues, with an educational desmond from [employer]. Thrive Questionnaire Date Thrive assessed: 02/29/24 I am a: Patient What is your living situation today?: I have a steady place to live Within the past 12 months, did the food you bought not last and you didn't have the money to get more?: Never true Within the past 12 months, did you worry whether your food would run out before you got money to buy more?: Never true Do you have trouble paying for medicines?: No Do you have trouble getting transportation to medical appointments?: No Do you have trouble paying your heating and electricity bill?: No Do you have trouble taking care of your child, family member or friend?: No Do you have trouble with day-to-day activities such as bathing, preparing meals, shopping, managing finances, etc.?: No Are you currently unemployed and looking for a job?: No Are you interested in more education?: No Please select the resources that you would like help with: None THRIVE Score: 0 AUDIT C Alcohol Use Questionnaire (AUDIT-C) 1. How often do you have a drink containing alcohol?: Never 3. How often do you have six or more drinks on one occasion?: Never Total Score: 0 TARA-7 AMB Questionnaire TARA-7 Date TARA - 7 assessed: 02/29/24 Feeling nervous, anxious, or on edge: 0 = Not at all Not being able to stop or control worryin = Not at all Worrying too much about different things: 0 = Not at all Trouble relaxin = Not at all Being so restless that it is hard to sit still: 0 = Not at all Becoming easily annoyed or irritable: 0 = Not at all Feeling afraid as if something awful might happen: 0 = Not at all Total TARA-7 score (0-4 normal; 5-9 mild; 10-14 moderate; 15-21 severe): 0 Source: Developed by Drs. Gray Carmichael, Roxanna Bacon, Paulie John and colleagues, with an educational desmond from [employer]. Review of Systems Const All systems reviewed & are unremarkable except as noted in HPI and below Reports no additional complaints Eyes Reports no additional complaints ENT Reports no additional complaints Card Reports no additional complaints Resp Reports no additional complaints GI Reports no additional complaints Reports no additional complaints Musc Reports no additional complaints Physical exam (Primary Care) Vital Signs: Last Vital Signs Pulse 95 02/29/24 14:36 BP 118/76 02/29/24 14:36 Pulse Ox 96 02/29/24 14:36 Oxygen Delivery Method Room Air 02/29/24 14:36 BMI result Body Mass Index 24.7 Tobacco/Smoking Status: Tobacco use Status Tobacco use date assessed 02/29/24 02/29/24 14:43 Patient Tobacco Use Status Former Tobacco user 02/29/24 14:34 e-Cigarette/Vaping Use Never Used 02/29/24 14:34 PHQ-9: PHQ-9 Score PHQ-9: Total score 0 02/29/24 14:43 Depression Screening Interpretation: Negative Thrive Assessment: Date of Thrive Assessment Date Thrive assessed 02/29/24 02/29/24 14:43 Const General: no acute distress HENMT Face and sinus: Yes normal facial exam Eyes General: appearance normal, both eyes and all related structures Resp Effort & Inspection: normal respiratory effort Auscultation: clear to auscultation bilaterally Cardio Rhythm: regular rhythm Heart sounds: S1 normal heart sound present and S2 normal heart sound present Extrem Other: Dorsum of right foot soft tissue swelling erythema warmth and tenderness Assessment and Plan Assessment & Plan (1) Atrial fibrillation: Comment: Dr. Pham Code(s): I48.91 - Unspecified atrial fibrillation Plan: Continue metoprolol and Eliquis (2) Chronic renal disease, stage 3, moderately decreased glomerular filtration rate (GFR) between 30-59 mL/min/1.73 square meter: Comment: Monitor renal function function Code(s): N18.30 - Chronic kidney disease, stage 3 unspecified Plan: Check renal function avoid nephrotoxins (3) Gout: Code(s): M10.9 - Gout, unspecified Plan: Prednisone taper is prescribed. uric acid level and comprehensive panel will be checked today Orders: Orders Comprehensive Met. Panel Today I48.91 - Unspecified atrial fibrillation, M10.9 - Gout, unspecified, N18.30 - Chronic kidney disease, stage 3 unspecified Uric Acid Today I48.91 - Unspecified atrial fibrillation, M10.9 - Gout, unspecified, N18.30 - Chronic kidney disease, stage 3 unspecified Complete Blood Count Auto Diff Today I48.91 - Unspecified atrial fibrillation, M10.9 - Gout, unspecified, N18.30 - Chronic kidney disease, stage 3 unspecified Medications: New prednisone orally daily; 4 tabl x 3days, 3 tabl qd x 3 days, then 2 tabl qd for 2 days, then 1 tabl qd x 3 days 30 tabs 0RF Coding Level of Care Code Est Pt Level 4 (82299) Diagnoses Atrial fibrillation I48.91 Chronic renal disease, stage 3, moderately decreased glomerular filtration rate (GFR) between 30-59 mL/min/1.73 square meter N18.30 Gout M10.9
[2024-02-29 14:36] VITALS: BP 118/76; PULSE 95; O2SAT 96; BMI 24.7
== END 2024-02-29 15:18 | disposition home or self-care (01) ==
PROVIDERS: PCP Internal Medicine; Visit Provider Internal Medicine
DX: I48.91 Unspecified atrial fibrillation (principal); N18.30 Chronic kidney disease, stage 3 unspecified; M10.9 Gout, unspecified
CPT/HCPCS: 99214

== ENCOUNTER 2024-02-29 15:15 | Outpatient (REF) | payer MEDICARE, SELFPAY ==
[2024-02-29 16:16] LABS: MANUAL DIFF FLAG NO
[2024-02-29 16:34] LABS: Basophils Percent Auto 0.4 % (0-2); Eosinophils Absolute Auto 0.2 X10*3/uL (0.0-0.4); Eosinophils Percent Auto 2.3 % (0-4); Hematocrit 40.5 % (42.0-52.0); Hemoglobin 13.4 g/dl (14.0-18.0); Imm Gran Abs Auto 0.02 X10*3/uL (0.00-0.03); Imm Gran Pct Auto 0.2 % (0.0-0.4); Lymphocytes Absolute Auto 1.8 X10*3/uL (1.2-4.9); Lymphocytes Percent Auto 18.6 % (20-40); Mean Corpuscular HGB Conc 33.1 g/dl (31.0-36.0); Mean Corpuscular Hemoglobin 30.1 pg (27.0-33.0); Monocytes Percent Auto 10.2 % (2-11); Neutrophils Absolute Auto 6.5 x10*3/uL (2.0-8.3); Neutrophils Percent Auto 68.3 % (45-73); Platelet Count 162 X10*3/uL (160-400); Red Blood Count 4.45 X10*6/uL (4.60-5.80); Red Cell Distribution Width 13.8 % (11.0-16.0); White Blood Count 9.5 X10*3/uL (4.8-10.8)
[2024-02-29 16:54] LABS: Alanine Aminotransferase 17 U/L (0-40); Albumin Level 4.5 g/dL (3.5-5.0); Alkaline Phosphatase 91 U/L (39-117); Anion Gap 12 (12-20); Aspartate Amino Transferase 23 U/L (5-37); Bilirubin Total 1.1 mg/dL (0.0-1.0); Blood Urea Nitrogen 29 mg/dL (9-16); Calcium 9.1 mg/dL (8.4-10.2); Carbon Dioxide 26 mmol/L (22-29); Chloride 107 mmol/L (96-108); Estimated Glomerular Filt Rate 46; Glucose Random 86 mg/dL (60-115); Potassium 4.6 mmol/L (3.3-5.1); Sodium 140 mmol/L (135-145); Total Protein 7.4 g/dL (6.5-8.0); Uric Acid 7.3 mg/dL (3.4-7.0)
== END 2024-02-29 15:16 | disposition home or self-care (01) ==
LOC: HO.HMGCLDS 15:15
PROVIDERS: PCP Internal Medicine; Visit Provider Internal Medicine
DX: N18.30 Chronic kidney disease, stage 3 unspecified (principal); I48.91 Unspecified atrial fibrillation; M10.9 Gout, unspecified
CPT/HCPCS: 36415; 80053; 84550; 85025

== ENCOUNTER 2024-06-02 08:59 | Outpatient (AMB) | payer MEDICARE, SELFPAY ==
[2024-06-02 09:27] VITALS: BP 122/74; PULSE 89; TEMP 36.4; O2SAT 99; BMI 24.2
--- NOTE | 2024-06-02 09:27 | AM.OFFWIN_ITS ---
Intake Vital Signs 06/02/24 09:27 Height 5 ft 6 in Weight 150 lb BMI 24.2 BP 122/74 Blood Pressure Location Lt brachial Position Sitting Pulse 89 Pulse Source Pulse Oximeter Temp 97.6 F Temp Source Oral Pulse Oximetry (%) 99 Oxygen Delivery Method Room Air Intake Visit Reasons: EP RT wrist pain/swelling Intake Note: Pt is here today for Rt wrist swelling. No injury mentioned. Pt states woke up and noticed Rt hand swelling, finger tingling. Patient Tobacco Use Status: Former Tobacco user Allergies No Known Allergies Allergy (Verified 06/02/24 09:27) Do you need a note to return to daycare/school/sports/work: No HPI HPI Comments History of Present Illness Details Patient presents to the walk-in today for sick visit Complaining of right hand pain and swelling times 5 days Denies injury. Has been taking [id number] pain reliever as directed by pharmacist. Unable to take nonsteroidal anti-inflammatory medications due to current use of Eliquis. Has been wearing a brace to the right hand/wrist with some improvement Endorses some diffuse generalized joint aches over the last 2 weeks, has been working out in the [employer] a lot recently. Concerned for Lyme exposure Denies known tick bite. Denies rash. Denies fever, chills, weakness, dizziness, headaches PFSH Medical History Left inguinal hernia Chronic renal disease, stage 3, moderately decreased glomerular filtration rate (GFR) between 30-59 mL/min/1.73 square meter Annual physical exam Lung cancer Renal cell cancer Nephrolithiasis Gross hematuria Atrial fibrillation Surgical History Hx of left inguinal hernia repair (12/04/23) History of lobectomy of lung History of right nephrectomy H/O colonoscopy History of parathyroidectomy Family History Father No problems noted. Mother Heart problem Brother Prostate cancer metastatic to bone Social History Housing: House Alcohol intake: current Alcohol intake frequency: a few times a week Alcohol type: wine Patient Tobacco Use Status: Former Tobacco user e-Cigarette/Vaping Use: Never Used Current occupational status: retired Cognitive needs: No Hearing needs: No Vision needs: No Review of Systems Const All systems reviewed & are unremarkable except as noted in HPI and below Physical Exam General: awake, alert, oriented. Answers questions appropriately. Fully engaged in examination. Skin: warm, dry, intact HEENT: Normocephalic. Hearing intact. Cardiac: External chest normal in appearance. Respiratory: No cough, audible wheezing or stridor. Abdomen: without gross distension. MS: Right hand: Generalized swelling. No significant warmth, erythema or tenderness. Stiffness and decreased humidifier attendant strength secondary to inflammation Neurological: Oriented to person, place, time and situation. Thought process intact. No gait abnormalities appreciated. Psychiatric: Appropriate mood and affect. Good judgment and insight. Assessment & Plan Assessment & Plan (1) Right hand pain: Code(s): M79.641 - Pain in right hand Plan Will check labs for tick-borne illness, patient aware he will be called with results Prednisone taper as prescribed, likely swelling and stiffness related to arthritis Continue with brace for comfort Continue with [id number] medications/Tylenol as needed All questions and concerns were answered, patient agrees with the plan. Follow up with PCP as planned Orders: Orders Tick-borne Disease Molecular Today S00.96XA - Insect bite (nonvenomous) of unspecified part of head, initial encounter, W57.XXXA - Bitten or stung by nonvenomous insect and other nonvenomous arthropods, initial encounter Medications: Refilled prednisone orally daily; 4 tabl x 3days, 3 tabl qd x 3 days, then 2 tabl qd for 2 days, then 1 tabl qd x 3 days 30 tabs 0RF Coding Level of Care Code Est Pt Level 3 (82115) Diagnoses Right hand pain M79.641
== END 2024-06-02 10:10 | disposition home or self-care (01) ==
PROVIDERS: PCP Internal Medicine; Visit Provider Registered Nurse Emergency
DX: M79.641 Pain in right hand (principal)
CPT/HCPCS: 99213

== ENCOUNTER 2024-06-02 10:01 | Outpatient (REF) | payer MEDICARE, SELFPAY ==
[2024-06-03 22:24] LABS: A. Phagocytphilium DNA,RT-PCR NOT DETECTED (NOT DETECTED); Babesia Microti DNA, RT-PCR NOT DETECTED (NOT DETECTED); Borrelia Miyamotoi,DNA RT-PCR NOT DETECTED (NOT DETECTED); E.Chaffeensis DNA RT-PCR NOT DETECTED (NOT DETECTED); Lyme(Borrelia ssp)DNA RT-PCR NOT DETECTED (NOT DETECTED)
== END 2024-06-02 10:02 | disposition home or self-care (01) ==
LOC: HO.HMGCLDS 10:01
PROVIDERS: PCP Internal Medicine; Visit Provider Registered Nurse Emergency
DX: S00.96XA Insect bite (nonvenomous) of unspecified part of head, initial encounter (principal); W57.XXXA Bitten or stung by nonvenomous insect and other nonvenomous arthropods, initial encounter; Y93.9 Activity, unspecified; Y92.9 Unspecified place or not applicable; Y99.9 Unspecified external cause status
CPT/HCPCS: 36415; 87468; 87469; 87478; 87484; 87798

== ENCOUNTER 2024-06-25 07:18 | Outpatient (REF) | payer MEDICARE, SELFPAY ==
[2024-06-25 07:34] LABS: MANUAL DIFF FLAG NO
[2024-06-25 07:54] LABS: Basophils Percent Auto 0.4 % (0-2); Eosinophils Absolute Auto 0.2 X10*3/uL (0.0-0.4); Eosinophils Percent Auto 2.4 % (0-4); Hematocrit 38.6 % (42.0-52.0); Hemoglobin 12.7 g/dl (14.0-18.0); Imm Gran Abs Auto 0.03 X10*3/uL (0.00-0.03); Imm Gran Pct Auto 0.4 % (0.0-0.4); Lymphocytes Absolute Auto 1.6 X10*3/uL (1.2-4.9); Lymphocytes Percent Auto 19.3 % (20-40); Mean Corpuscular HGB Conc 32.9 g/dl (31.0-36.0); Mean Corpuscular Hemoglobin 29.9 pg (27.0-33.0); Mean Corpuscular Volume 90.8 fL (80.0-98.0); Mean Platelet Volume 11.6 fL (9.4-12.4); Monocytes Absolute Auto 0.8 X10*3/uL (0.1-1.2); Monocytes Percent Auto 9.6 % (2-11); Neutrophils Absolute Auto 5.7 x10*3/uL (2.0-8.3); Neutrophils Percent Auto 67.9 % (45-73); Platelet Count 161 X10*3/uL (160-400); Red Blood Count 4.25 X10*6/uL (4.60-5.80); Red Cell Distribution Width 13.3 % (11.0-16.0); White Blood Count 8.3 X10*3/uL (4.8-10.8)
[2024-06-25 08:13] LABS: Rheumatoid Factor < 13.0 IU/mL (<15.0)
[2024-06-25 08:16] LABS: Alanine Aminotransferase 27 U/L (0-40); Albumin Level 4.1 g/dL (3.5-5.0); Alkaline Phosphatase 91 U/L (39-117); Anion Gap 14 (12-20); Aspartate Amino Transferase 20 U/L (5-37); Bilirubin Total 1.1 mg/dL (0.0-1.0); Blood Urea Nitrogen 26 mg/dL (9-16); C Reactive Protein 3.92 mg/dL (< or = 0.50); Calcium 9.5 mg/dL (8.4-10.2); Carbon Dioxide 25 mmol/L (22-29); Chloride 107 mmol/L (96-108); Cholesterol 170 mg/dL (<200); Estimated Glomerular Filt Rate 44; Glucose Fasting 99 mg/dL (60-99); HDL Cholesterol 63 mg/dL (>40); Iron 59 mcg/dL (45-160); LDL Cholesterol Calculated 95 mg/dL (<100); Percent Iron Saturation 24 % (15-50); Potassium 4.5 mmol/L (3.3-5.1); Sodium 141 mmol/L (135-145); Total Iron Binding Capacity 250 mcg/dL (228-428); Total Protein 6.8 g/dL (6.5-8.0); Triglycerides 63 mg/dL (<150); Unsaturated Iron Binding 191 ug/dL; Uric Acid 6.4 mg/dL (3.4-7.0)
[2024-06-25 08:38] LABS: Erythrocyte Sedimentation Rate 19 MM/HR (0-15)
[2024-06-26 17:39] LABS: Lyme Abs Screen <0.90 index
[2024-06-30 10:39] LABS: Anti Nuclear Antibody Screen NEGATIVE (NEGATIVE)
[2024-06-30 16:25] LABS: Cyclic Citrullinated Peptide <16 UNITS
== END 2024-06-25 07:19 | disposition home or self-care (01) ==
LOC: HO.LAB 07:18
PROVIDERS: Physical Medicine & Rehabilitation Sports Medicine; PCP Internal Medicine; Visit Provider Internal Medicine
DX: Z00.00 Encounter for general adult medical examination without abnormal findings (principal); I48.91 Unspecified atrial fibrillation; C34.90 Malignant neoplasm of unspecified part of unspecified bronchus or lung; C64.9 Malignant neoplasm of unspecified kidney, except renal pelvis; M1A.0410 Idiopathic chronic gout, right hand, without tophus (tophi)
CPT/HCPCS: 36415; 80053; 80061; 83540; 84550; 85025; 85652; 86038; 86140; 86200; 86431; 86617; 86618

== ENCOUNTER 2024-06-26 08:54 | Outpatient (AMB) | payer MEDICARE, SELFPAY ==
[2024-06-26 08:58] VITALS: BP 124/76; PULSE 105; O2SAT 100; BMI 24.2
--- NOTE | 2024-06-26 08:58 | AM.OFFVISMDC ---
Intake Vital Signs 06/26/24 08:58 Height 5 ft 6 in Weight 150 lb BMI 24.2 BP 124/76 Blood Pressure Location Lt brachial Position Sitting Pulse 105 H Pulse Source Pulse Oximeter Pulse Oximetry (%) 100 Oxygen Delivery Method Room Air Intake Visit Reasons: SWV Allergies No Known Allergies Allergy (Verified 06/26/24 09:02) Medication List - Last Reconciled 06/26/24 by Adriana Cox MD apixaban (Eliquis) 5 mg PO BID metoprolol succinate ER 25 mg PO DAILY multivitamin 1 tab PO DAILY HPI SWV HPI Details Patient presents for annual wellness visit. He complains of persistent right hand soft tissue swelling for the last 2 weeks. He was seen in urgent Care was prescribed prednisone taper with good relief. He reports chronic right wrist pain and has been wearing wrist brace at night for the last few weeks with good relief. Patient was seen by earle Powers x-ray was consistent with osteoarthritis. Patient denies small head and joints pain swelling erythema or warmth Initiated the conversation about Advanced Directives. Advanced Directives help? patients prepare for current and future decisions about their medical treatment? and place of care. Discussed with patient that it is a process where a patients? current condition and prognosis are reviewed, their wishes for information? regarding their illness are elicited, and likely medical dilemmas are presented? and options discussed. The form can be amended as needed, reviewed yearly and? make changes as needed IPPE/AWV ? year old presents? for her ? Annual? Wellness Visit, initial visit.? Medical / Social History Reviewed? Past Medical History ?Yes? . ? [place]? of Care / Care Team list updated ?Yes . ? Surgical/Hospitalization? History ?Yes . ? Current Medications? (including OTC and supplements) ?Yes . ? Family History ?Yes? . ? Tobacco? Control form ?Yes . ? AUDIT-C (Alcohol use) form? ?Yes . ? Illicit drug use in Social? History ?Yes . ? Current diagnosis of? depression? ?No ? Appropriate PHQ2/PHQ9? completed ?Yes . ? Data entered by ?Medical? Pole [employer] and reviewed by provider ? Fall Risk ? Fall? History? Have you had any falls with? injury in the past year? ?No . ? Have you had two or more? falls in the past year? ?No . ? Fall Risk Assessment: ?No? falls in the past year . ? HRA filled out by? the patient, reviewed by Provider and scanned. ? IPPE/AWV ? Balance? [place]? ?Yes . ? Tandem? walk ?Yes . ? Walk and? Turn ?Yes . ? Rise from? sit to stand ?Yes . ?Vision? Corrective? lens ?Yes ? Vision? screen ? Up-to-date, has an appointment [] for vision? screening and glaucoma screening ?Hearing? Whisper? test ?pass .? Initiated the conversation about Advanced Directives. Advanced Directives help? patients prepare for current and future decisions about their medical treatment? and place of care. Discussed with patient that it is a process where a patients? current condition and prognosis are reviewed, their wishes for information? regarding their illness are elicited, and likely medical dilemmas are presented? and options discussed. The form can be amended as needed, reviewed yearly and? make changes as needed Written? Plan?Completed. See Patient? Documents. [facility] Medical History Left inguinal hernia Chronic renal disease, stage 3, moderately decreased glomerular filtration rate (GFR) between 30-59 mL/min/1.73 square meter Annual physical exam Lung cancer Renal cell cancer Nephrolithiasis Gross hematuria Atrial fibrillation Surgical History (Reviewed 06/26/24 @ :25 by Adriana Cox MD) Hx of left inguinal hernia repair (12/04/23) History of lobectomy of lung History of right nephrectomy H/O colonoscopy History of parathyroidectomy Family History Father No problems noted. Mother Heart problem Brother Prostate cancer metastatic to bone Social History Housing: House Alcohol intake: current Alcohol intake frequency: a few times a week Alcohol type: wine Patient Tobacco Use Status: Former Tobacco user e-Cigarette/Vaping Use: Never Used Current occupational status: retired Cognitive needs: No Hearing needs: No Vision needs: No Questionnaire Medicare Wellness Checkup What is your age?: 81 or older What gender do you identify with?: male During the past 4 weeks, how much have you been bothered by emotional problems such as feeling anxious, depressed, irritable, sad or downhearted, and blue?: not at all During the past 4 weeks, has your physical & emotional health limited your social activities with family, friends, neighbors, or groups?: not at all During the past 4 weeks, how much bodily pain have you generally had?: severe pain During the past 4 weeks, was someone available to help you if you needed & wanted help?: yes, as much as I wanted During the past 4 weeks, what was the hardest physical activity you could do for at least 2 minutes?: moderate Can you get to places out of walking distance without help? (For eg., can you travel alone on buses, taxis or drive your car?): Yes Can you go shopping for groceries or clothes without someone's help?: Yes Can you prepare your own meals?: Yes Can you do your housework without help?: Yes Because of any health problems, do you need the help of another person with your personal care needs such as eating, bathing, dressing or getting around the house?: No Can you handle your own money without help?: Yes During the past 4 weeks, how would you rate your health in general?: poor During the past 4 weeks how have things been going for you?: pretty bad Are you having difficulties driving your car?: no Do you always fasten your seat belt when you are in a car?: yes, usually During past 4 weeks, have you been bothered by the following: never: Falling or dizzy when standing up, Sexual problems?, Trouble eating well?, Teeth or denture problems? and Problems using the telephone? and sometimes: Tiredness or fatigue? Have you fallen 2 or more times in the past year?: No Are you afraid of falling?: No Are you a smoker?: no During the past 4 weeks, how many drinks of wine, beer, or other alcoholic beverages did you have?: no alcohol at all Do you exercise for about 20 minutes 3 or more times a week?: yes, most of the time Have you been given information to help with the following?: yes: Hazards in your house that might hurt you? and yes: Keeping track of your medications? How often do you have trouble taking medicines the way you have been told to take them?: I always take medicine as prescribed How confident are you that you can control & manage most of your health problems?: somewhat confident What is your race?: White Mini Mental State Exam (MMSE) Orientation What is the (year) (season) (date) (day) (month)?: year, season, date, day and month Where are we (state) (county) (town or city) (hospital) (floor)?: state, county, town or city, hospital/clinic and floor Registration Name of 3 unrelated objects clearly and slowly, then ask patient to repeat all 3 of them. (1st repeat determines score. Make sure they can repeat all three): object 1, object 2 and object 3 Attention & Calculation (CHOOSE ONE) Spell WORLD backwards (DLROW): 5 letters Recall Ask patient to repeat the 3 items from question #3.: object 1, object 2 and object 3 Language Show patient a wristwatch & ask what it is. Repeat for pencil.: watch and pencil Ask the patient to repeat the phrase 'No ifs, ands, or buts' after you.: correct Ask the patient to 'take a piece of paper with their right hand' 'fold paper in half' 'place paper on floor': take paper in right hand, fold paper in half and place paper on floor Print the sentence 'CLOSE YOUR EYES' on a piece. If patient actually closes eyes then score.: followed written direction Give patient a blank piece of paper & ask to write a sentence. Score if it contains a noun & verb.: sentence contains subject and verb Score Score: 29 Activity of Daily Living Bathing - sponge bath, tub bath or shower: receives no assistance (gets in/out by self, if usual bathing means Dressing - getting clothes from closets & drawers, including inner/outer garments & fasteners.: gets clothes & gets completely dressed without help Toileting - going to the 'toilet room' for urine/bowel elimination & cleaning self/arranging clothes: goes to toilet room, cleans self, arranges clothes without help Transfer: moves in & out of bed and chair without help (may use support object) Continence: controls urination/bowel movements completely by self Feeding: feeds self without help Total Score: 0 Information obtained from: patient Using telephone: independent Traveling: independent Shopping: independent Preparing meals: independent Housework: independent Taking medicine: independent Managing money: independent PHQ-9 Over the last 2 weeks, how often have you been bothered by any of the following problems? 1. Little interest or pleasure in doing things: not at all 2. Feeling down, depressed, or hopeless: not at all 3. Trouble falling or staying asleep, or sleeping too much: nearly every day 4. Feeling tired or having little energy: nearly every day 5. Poor appetite or overeating: not at all 6. Feeling bad about yourself - or that you are a failure or have let yourself or your family down: not at all 7. Trouble concentrating on things, such as reading the newspaper or watching television: not at all 8. Moving or speaking so slowly that other people could have noticed. Or the opposite - being so fidgety or restless that you have been moving around a lot more than usual: not at all 9. Thoughts that you would be better off or of hurting yourself in some way: not at all Total score: 6 Depression Screening Interpretation: Negative Depression Screening Done: Yes Source: Developed by Drs. Gray Carmichael, Roxanna Bacon, Paulie John and colleagues, with an educational desmond from [employer]. Review of Systems Const All systems reviewed & are unremarkable except as noted in HPI and below Reports no additional complaints Eyes Reports no additional complaints ENT Reports no additional complaints Card Reports no additional complaints Resp Reports no additional complaints GI Reports no additional complaints Reports no additional complaints Physical Exam Vital Signs: Last Vital Signs Pulse 105 H 06/26/24 08:58 BP 124/76 06/26/24 08:58 Pulse Ox 100 06/26/24 08:58 Oxygen Delivery Method Room Air 06/26/24 08:58 BMI result Body Mass Index 24.2 Const General: no acute distress and acute distress HEENT Head: Yes normal to inspection Ears: hearing grossly normal bilaterally Eyes General: appearance normal, both eyes and all related structures Neck Neck: Yes supple Resp Effort & Inspection: normal respiratory effort Auscultation: clear to auscultation bilaterally Cardio Rhythm: regular rhythm Heart sounds: S1 normal heart sound present and S2 normal heart sound present GI Inspection: Yes normal to inspection Palpation (GI): Soft to palpation Percussion: Yes normal to percussion Auscultation: normal bowel sounds Extrem Other: R hand soft tissue swelling, no erythema,slightly decreased ROM of right wrist General: Yes no clubbing, cyanosis or edema Assessment & Plan Assessment & Plan (1) Lung cancer: Comment: s/p R lobectomy for non small ca 10/2020 f/[place] [facility] [place] SCAN Q 6 months Code(s): C34.90 - Malignant neoplasm of unspecified part of unspecified bronchus or lung Plan: f/u thoracic surgeon (2) Annual physical exam: Code(s): Z00.00 - Encounter for general adult medical examination without abnormal findings Plan: Well-balanced diet regular physical activity discussed with the patient (3) Atrial fibrillation: Comment: Dr. Pham Code(s): I48.91 - Unspecified atrial fibrillation Plan: Continue Eliquis and metoprolol (4) Swelling of right hand: Comment: Right wrist and hand x-ray consistent with osteoarthritis, normal uric acid level 07/12 Code(s): M79.89 - Other specified soft tissue disorders Plan: Patient was advised to stop worrying wrist brace elevate right hand and call if the swelling does not improve within the next week, (5) Chronic renal disease, stage 3, moderately decreased glomerular filtration rate (GFR) between 30-59 mL/min/1.73 square meter: Comment: Monitor renal function function Code(s): N18.30 - Chronic kidney disease, stage 3 unspecified Plan: Avoid nephrotoxins monitor renal function (6) Renal cell cancer: Comment: s/p R nephrectomy 09/2020 f/[place] [facility] [place] Code(s): C64.9 - Malignant neoplasm of unspecified kidney, except renal pelvis Plan: Follow-up with urology as needed Orders: Orders PT Evaluation and Treatment Today M25.511 - Pain in right shoulder Quality Reporting (2019) Depression/Bipolar (159/160/161/177) PHQ-9: Total score: 6 Coding Level of Care Code Medicare Subsequent (G0439) Diagnoses Lung cancer C34.90 Annual physical exam Z00.00 Atrial fibrillation I48.91 Swelling of right hand M79.89 Chronic renal disease, stage 3, moderately decreased glomerular filtration rate (GFR) between 30-59 mL/min/1.73 square meter N18.30 Renal cell cancer C64.9 CPT Codes Advance Care Planning - Advance Care Planning discussion: On file, no changes ([id number]) Advance Care Planning - Time spent: 1-15 minutes, on File ([id number]) Advance Care Planning Advance Care Planning discussion: On file, no changes Forms completed: Health Care Proxy Time spent: 1-15 minutes, on File
== END 2024-06-26 12:07 | disposition home or self-care (01) ==
PROVIDERS: PCP Internal Medicine; Visit Provider Internal Medicine
DX: Z00.00 Encounter for general adult medical examination without abnormal findings (principal); C34.90 Malignant neoplasm of unspecified part of unspecified bronchus or lung; I48.91 Unspecified atrial fibrillation; N18.30 Chronic kidney disease, stage 3 unspecified; C64.9 Malignant neoplasm of unspecified kidney, except renal pelvis; M79.89 Other specified soft tissue disorders
CPT/HCPCS: 1123F; G0439

== ENCOUNTER 2024-06-26 09:45 | Outpatient (REF) | payer MEDICARE, SELFPAY ==
--- NOTE | ~2024-06-26 | XR_ITS ---
EXAMINATION: XR CHEST CLINICAL INFORMATION: Malignant neoplasm of bronchus. COMPARISON: None available. TECHNIQUE: 2 views of the chest were obtained. FINDINGS: Lungs are hyperinflated consistent with COPD. Heart size is normal. No evidence of CHF. There is some mild volume loss in the right hemithorax compared with the left. No effusions, infiltrates or lung masses are seen. Surgical clips are present in the right upper quadrant. XR/XR chest 2V IMPRESSION: COPD. No acute intrathoracic disease.
== END 2024-06-26 09:46 | disposition home or self-care (01) ==
LOC: HO.HMGCX 09:45
PROVIDERS: PCP Internal Medicine; Visit Provider Internal Medicine
DX: C34.90 Malignant neoplasm of unspecified part of unspecified bronchus or lung (principal)
CPT/HCPCS: 71046

== ENCOUNTER 2024-07-15 10:56 | Outpatient (RCR) | payer MEDICARE, SELFPAY ==
--- NOTE | 2024-07-15 12:50 | MHC.PT.EP ---
[facility] [place] Office [place] [facility] [place] Office [address] Kalie Castillo [address] [phone] F: [phone] F: [phone] F: [phone] F: [phone] Physical Therapy Plan of Care Date of Evaluation: 07/15/24 Date of Surgery: Diagnosis: PAIN IN RIGHT SHOULDER Assessment: 84 YO MALE REF TO PT FOR Rt SH PAIN-HE ALSO HAS EDEMA IN Rt DORSAL HAND AND WRIST AND FINGERS, DIRECTLY IMPACTING AND REDUCING HIS ADL LISA - HIS Rt HAND ROM / FIST ROM IS LIMITED. THE Pt RESIDES WITH HIS AND IS CARING FOR HER SHE PURSUES TREATMENT. THE Pt HAS DECR POSTURAL AWARENESS, POST RC/ SCAP WEAKNESS, LIMITED Rt SH AND CERV MOBILITY. THE Pt WOULD BENEFIT FROM AN OT CONSULT TO ADDRESS Rt HAND/ FOREARM EDEMA AND IMPROVE FUNCTION Rt UE. Frequency and Duration: The patient will be seen 1-2 x WK x 4 WKS Short Term Goals: *DECR Rt SH PAIN *IMPROVE POSTURAL AWARENESS TO REDUCE CERV *INCREASE Rt SH AND CERV AROM MONITOR Rt DISTAL UE SWELLING Residential Goals: *Pt INDEP W HEP AND SELF-SX MGMT TECHN *Pt INCR Rt UE USE W ADLs-> IMPROVED SPADI (AT EVAL 94/130) *WFL STRENGTH Rt UE Treatment Plan: Modalities to reduce pain, spasms and effusion. Manual therapy to restore motion and function. Therapeutic exercise to improve strength and flexibility. Neuromuscular re-education for posture and balance. Therapeutic activities to return to functional activities of daily living. Electronically signed by: JULIANO BRADLEY,PT Please sign and return to therapist. Thank you for your referral.
== END 2024-08-19 08:57 | disposition home or self-care (01) ==
LOC: HO.PT 10:56
PROVIDERS: PCP Internal Medicine; Visit Provider Internal Medicine
DX: M25.511 Pain in right shoulder (principal)
CPT/HCPCS: 97162

== ENCOUNTER 2024-07-15 12:50 | Outpatient (AMB) | payer MEDICARE, SELFPAY ==
[2024-07-15 13:00] VITALS: BP 104/66; PULSE 67; O2SAT 97; BMI 23.7
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
== END 2024-07-15 13:47 | disposition home or self-care (01) ==
PROVIDERS: PCP Internal Medicine; Visit Provider Internal Medicine
DX: M79.89 Other specified soft tissue disorders (principal); I89.0 Lymphedema, not elsewhere classified; C34.90 Malignant neoplasm of unspecified part of unspecified bronchus or lung
CPT/HCPCS: 99213

== ENCOUNTER 2024-07-15 13:52 | Outpatient (REF) | payer MEDICARE, SELFPAY ==
--- NOTE | ~2024-07-15 | US_ITS ---
EXAMINATION: US TRIPLEX UPPER EXTREMITY, RIGHT CLINICAL INFORMATION: Swelling rule out DVT COMPARISON: None available. TECHNIQUE: Color-flow triplex imaging with spectral analysis and compression Doppler was performed on the right upper extremity. FINDINGS: The right internal jugular, subclavian, and axillary veins are patent and free of thrombus. The imaged segment of the right brachiocephalic vein is patent. Spectral doppler waveforms are normal. The brachial, basilic, cephalic, radial, and ulnar veins are patent and compressible. US/US venous duplex UE RT IMPRESSION: No evidence of deep venous thrombosis involving the right upper extremity. Electronically signed by: Gosia Arndt MD 07/15/2024 03:29 PM EDT
== END 2024-07-15 13:53 | disposition home or self-care (01) ==
LOC: HO.HMGCX 13:52
PROVIDERS: PCP Internal Medicine; Visit Provider Internal Medicine
DX: M79.601 Pain in right arm (principal); M79.89 Other specified soft tissue disorders
CPT/HCPCS: 93971

== ENCOUNTER 2024-09-02 09:56 | Outpatient (REF) | payer MEDICARE, SELFPAY ==
--- NOTE | ~2024-09-02 | CT_ITS ---
EXAMINATION: CT CHEST WITHOUT CONTRAST CLINICAL INFORMATION: Lymphedema, not elsewhere classified. COMPARISON: None available. TECHNIQUE: Multidetector volumetric CT imaging of the chest was done. Axial MIP volume rendering provided. Sagittal and coronal reformatted images were obtained. This CT examination was performed using dose optimization techniques as appropriate, variously including the following: *Automated exposure control *Adjustment of mA and/or kV according to patient size (this includes techniques or standardized protocols for targeted exams where dose is matched to indication/reason for exam; i.e. extremities or head) *Use of iterative reconstruction technique DLP: 130 mGy-cm FINDINGS: Submitted for interpretation on October 29, 2024. There is a 1 mm noncalcified pulmonary nodule in the peripheral right upper lobe. Nonspecific linear attenuation abnormality is in the right lung with volume loss. Sutures in the right pulmonary hilum and along the left lateral wall of the thoracic aortic arch. Volume loss, right lung. 3 mm groundglass nodule in the left lung base, nonspecific. No bronchiectasis. No honeycombing. Patchy groundglass and linear attenuation left lung base. No pleural effusion. No pneumothorax. Respiratory airways patent. No lymphadenopathy, mediastinum. No aneurysm, thoracic aorta. No pericardial effusion. There are subtle calcifications in the coronary arteries. Calcified lesions in the thoracic aorta. The thyroid gland is mildly prominent with questionable 1 cm hyperdense nodule in the right thyroid isthmus. Intra-abdominal organs demonstrated absent right kidney in the anatomic retroperitoneum with multiple vascular clips. Calcifications in the pelvicalyceal system/renal hilum of the left kidney without gross hydronephrosis. There is a subtle nodular surface of the liver. 5 mm hypodensity left hepatic lobe. Gallbladder is contracted. Multiple punctate calcifications throughout the pancreas. No peripancreatic fluid collections or main pancreatic ductal dilatation. Calcified plaques abdominal aorta wall and the origin of the main renal arteries. Multilevel spondylosis without acute fracture or listhesis. Bone marrow inhomogeneity. CT/CT chest wo IV con IMPRESSION: Nonspecific subcentimeter pulmonary nodules and groundglass nodules. Fleischner criteria: Low risk patients: No routine follow-up. High risk patients: CT at 12 months. Fleischner guidelines were followed. Electronically signed by: Jaiden Lilly MD 10/29/2024 01:58 PM EST
== END 2024-09-02 09:57 | disposition home or self-care (01) ==
LOC: HO.CT 09:56
PROVIDERS: PCP Internal Medicine; Visit Provider Internal Medicine
DX: I89.0 Lymphedema, not elsewhere classified (principal); C34.90 Malignant neoplasm of unspecified part of unspecified bronchus or lung
CPT/HCPCS: 71250

== ENCOUNTER → 2024-09-02 09:58 | Outpatient (BNV) | payer MEDICARE, SELFPAY | PROVIDERS: PCP Internal Medicine; Visit Provider Radiology Diagnostic Radiology | DX: R91.8 Other nonspecific abnormal finding of lung field (principal) | CPT/HCPCS: 71250 ==

== ENCOUNTER 2024-09-10 11:05 | Outpatient (AMB) | payer MEDICARE, SELFPAY ==
[2024-09-10 11:14] VITALS: BP 118/66; PULSE 94; O2SAT 99; BMI 24.0
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
== END 2024-09-10 12:31 | disposition home or self-care (01) ==
PROVIDERS: PCP Internal Medicine; Visit Provider Internal Medicine
DX: M19.90 Unspecified osteoarthritis, unspecified site (principal); N18.30 Chronic kidney disease, stage 3 unspecified; I48.91 Unspecified atrial fibrillation

== ENCOUNTER → 2024-09-10 11:05 | Outpatient (BNVA) | payer MEDICARE, SELFPAY | PROVIDERS: PCP Internal Medicine; Visit Provider Internal Medicine | DX: M19.90 Unspecified osteoarthritis, unspecified site (principal); N18.30 Chronic kidney disease, stage 3 unspecified; I48.91 Unspecified atrial fibrillation; Z79.01 Long term (current) use of anticoagulants; Z79.899 Other long term (current) drug therapy | CPT/HCPCS: 99212 ==

== ENCOUNTER 2025-06-10 08:20 | Emergency (ER) | payer MEDICARE, SELFPAY ==
--- NOTE | 2025-06-10 | ECG_ITS ---
Test Reason : DIZZINESS Blood Pressure : */* mmHG Vent. Rate : 81 BPM Atrial Rate : * BPM P-R Int : * ms QRS Dur : 90 ms QT Int : 400 ms P-R-T Axes : * 47 0 degrees QTcB Int : 464 ms Atrial fibrillation with premature ventricular or aberrantly conducted complexes Abnormal ECG When compared with ECG of 04-Dec-2023 06:52, No significant change was found Referred By: Dylan Priest Electronically Signed By: Juanito Mccracken
--- NOTE | ~2025-06-10 | MR_ITS ---
EXAMINATION: MR BRAIN WITHOUT CONTRAST CLINICAL INFORMATION: Dizziness, rule out cerebellar CVA. COMPARISON: No prior MRI. CT angiography head performed earlier same day. TECHNIQUE: MRI of the brain was obtained using routine sequences without contrast. Examination performed on a 1.5 Lily Siemens high-field unit. FINDINGS: There is no diffusion restriction. There is no intracranial hemorrhage, acute infarction, mass effect, or edema. Ventricles, sulci, and cisterns are somewhat diffusely prominent, in keeping with age-related cerebral and cerebellar volume loss. No shift of midline. No abnormal hemosiderin deposition is identified. There are a mild scattered punctate and minimally confluent foci of white matter T2 hyperintensity in the periventricular, subcortical, and hemispheric deep white matter. These foci are nonspecific but statistically most likely relate to small vessel ischemic changes. Midline structures appear normally formed. The pituitary gland appears normal. Posterior fossa structures appear normal. Cerebellar tonsils are appropriately located. Major flow voids are preserved within the skull base. The globes and orbital contents demonstrate no abnormalities. Paranasal sinuses demonstrate mild mucosal thickening in the ethmoid sinuses. There are small maxillary sinus mucous retention cysts. The mastoids and tympanic cavities are normally aerated. Extracranial soft tissues demonstrate no abnormalities. No suspicious bone marrow changes are evident. Atlantoaxial joint is normal. MR/MR head/brain wo con IMPRESSION: 1. No evidence of intracranial hemorrhage, acute infarction, mass effect, or edema. 2. Age-related cerebral and cerebellar involutional changes, and mild changes of small vessel ischemia. Electronically signed by: Chicho Mckeon MD 06/10/2025 01:25 PM EDT
--- NOTE | ~2025-06-10 | CT_ITS ---
EXAMINATION: CT ANGIOGRAM HEAD AND NECK CLINICAL INFORMATION: Dizziness, rule out CVA. COMPARISON: None available. TECHNIQUE: Noncontrast axial imaging of the head was performed. This was followed by test bolus sequences and head and neck intravenous bolus administration 70 mL of Omnipaque 350. Helical imaging was performed in the axial plane from the aortic arch to the skull vertex. The data was processed at the chief medical technologist's workstation for generation of MIP sequences. Angled MIPs and volume rendered reformatted images were also generated at an offline 3D workstation. Stenoses are assessed in accordance with NASCET criteria unless otherwise indicated. This CT examination was performed using dose optimization techniques as appropriate, variously including the following: *Automated exposure control *Adjustment of mA and/or kV according to patient size (this includes techniques or standardized protocols for targeted exams where dose is matched to indication/reason for exam; i.e. extremities or head) *Use of iterative reconstruction technique FINDINGS: NONCONTRAST HEAD CT: There is no evidence of intracranial hemorrhage or extra-axial fluid collection. There is no mass effect, or edema. No CT evidence of acute territorial infarct. Ventricles, sulci, and cisterns are mildly diffusely prominent in keeping with age-related cerebral and cerebellar volume loss. No hydrocephalus. No midline shift. Negative hyperdense MCA sign. Negative subinsular ribbon sign. No significant white matter abnormalities. Empty sella noted. Globes and orbital contents image normally. No extracranial soft tissue abnormalities. The paranasal sinuses, mastoid air cells, and tympanic cavities are normally aerated. No suspicious bony abnormalities. NECK CTA: -AORTIC ARCH: Normal in caliber. Mild atheromatous calcification. Three-vessel branching pattern. -GREAT VESSEL ORIGINS: Widely patent. No stenosis. Tortuous. -RIGHT COMMON CAROTID ARTERY: Normal in course and caliber to the level of the bifurcation. -CERVICAL RIGHT INTERNAL CAROTID ARTERY: Calcific atherosclerotic disease of the carotid bulb and proximal internal carotid artery causing approximately 30% stenosis. -LEFT COMMON CAROTID ARTERY: Normal in course and caliber to the level of the bifurcation. -CERVICAL LEFT INTERNAL CAROTID ARTERY: Calcific atherosclerotic disease of the carotid bulb and proximal internal carotid artery causing approximately 10% stenosis. -CERVICAL RIGHT VERTEBRAL ARTERY: Codominant. Mild origin stenosis secondary to mixed plaque. Remainder of the vessel is normal in course and caliber into the skull base. -CERVICAL LEFT VERTEBRAL ARTERY: Codominant. Mild origin stenosis secondary to mixed plaque. Remainder of the vessel is normal in course and caliber into the skull base. OTHER, SOFT TISSUES: -No lymphadenopathy or mass. No abnormal fluid collection or soft tissue swelling. -Mild Global thyroid enlargement without discrete nodule. -Imaged superior mediastinal structures normal. -Imaged lung apices clear. -There are degenerative cervical spinal changes. CTA OF THE BRAIN: -INTRACRANIAL INTERNAL CAROTID ARTERIES: Calcific atherosclerotic disease of the intracranial internal carotid arteries without occlusion or flow-limiting stenosis. -RIGHT ANTERIOR CEREBRAL ARTERY: Normal A1 segment. Normal arborization of the distal segments. -LEFT ANTERIOR CEREBRAL ARTERY: Normal A1 segment. Normal arborization of the distal segments. -ANTERIOR COMMUNICATING ARTERY: Normal. -RIGHT MIDDLE CEREBRAL ARTERY: Normal M1 segment of the MCA without focal stenosis or occlusion. Normal bifurcation. Normal arborization of the distal segments. -LEFT MIDDLE CEREBRAL ARTERY: Normal M1 segment of the MCA without focal stenosis or occlusion. Normal bifurcation. Normal arborization of the distal segments. -RIGHT VERTEBRAL ARTERY V4: Normal in course and caliber. Normal PICA branch. -LEFT VERTEBRAL ARTERY V4: Normal in course and caliber. Normal PICA branch. -BASILAR ARTERY: Normal without focal stenosis or occlusion. Normal appearance of the proximal superior cerebellar arteries. Normal basilar tip. -RIGHT POSTERIOR CEREBRAL ARTERY: Normal P1 segment. Normal opacification of the distal ACUTE DIALYSIS NURSE segments. -LEFT POSTERIOR CEREBRAL ARTERY: Normal P1 segment. Normal opacification of the distal ACUTE DIALYSIS NURSE segments. -POSTERIOR COMMUNICATING ARTERIES: Normal opacification of the superior sagittal, straight, transverse, and sigmoid sinuses. No venous thrombosis. No space-occupying hemorrhage or definite evolving infarct. CT/CT angio head neck IMPRESSION: NONCONTRAST HEAD CT: 1. No intracranial hemorrhage or mass effect. No CT evidence of acute territorial infarct. CTA NECK: 1. There is an approximate 30% stenosis of the right ICA at the origin secondary to mixed plaque. 2. There is an approximate 10% stenosis of the left ICA at the origin secondary to mixed plaque. 3. There are mild origin stenoses of both vertebral arteries. Remainder of the vessels are patent. 4. There is no flow-limiting stenosis, occlusion, aneurysm, or dissection in the major cervical arterial vasculature. CTA HEAD: 1. There is no flow-limiting stenosis, occlusion, aneurysm, or dissection in the major intracranial arterial vasculature. 2. Major cortical and dural venous sinuses are patent. Electronically signed by: Chicho Mckeon MD 06/10/2025 10:15 AM EDT RP
[2025-06-10 08:23] VITALS: BP 139/82; PULSE 87; RESP 18; TEMP 36.8; O2SAT 99; BMI 24.1
[2025-06-10 08:45] VITALS: BP 116/59; PULSE 78; PULSE 88; RESP 14; O2SAT 97
[2025-06-10 08:56] LABS: MANUAL DIFF FLAG NO
[2025-06-10 09:01] LABS: Hematocrit 32.9 % (42.0-52.0); Hemoglobin 11.2 g/dl (14.0-18.0); Imm Gran Abs Auto 0.02 X10*3/uL (0.00-0.03); Imm Gran Pct Auto 0.3 % (0.0-0.4); Lymphocytes Absolute Auto 0.6 X10*3/uL (1.2-4.9); Mean Corpuscular HGB Conc 34.0 g/dl (31.0-36.0); Mean Corpuscular Hemoglobin 31.9 pg (27.0-33.0); Mean Corpuscular Volume 93.7 fL (80.0-98.0); NRBC Abs Auto 0.000 X10*3/uL (0.0-0.012); NRBC Pct Auto 0.0 /100WBC (0.0-0.2); Platelet Count 147 X10*3/uL (160-400); Red Blood Count 3.51 X10*6/uL (4.60-5.80); White Blood Count 6.9 X10*3/uL (4.8-10.8)
--- NOTE | 2025-06-10 09:05 | PC.NURSE ---
Addendum entered by Paulina Camp RN 06/10/25 09:07: Patient is a 85 yo male who presents with sudden onset dizziness and room spinning at 12 am when he stood with assoc vomiting x 5. No dizziness when he is lying. Alert and oriented. No droop, tongue midline. All four extremities strong and equal with no drift noted. convolute tube winder applied and afib noted with a controlled rate. Lungs clear bilat. Respirations even and non-labored. Abdomen soft, non-tender with positive bowel sounds. Positive pedal pulses with no edema. Original Note: Medical History Left inguinal hernia Chronic renal disease, stage 3, moderately decreased glomerular filtration rate (GFR) between 30-59 mL/min/1.73 square meter Annual physical exam Lung cancer Renal cell cancer Nephrolithiasis Gross hematuria Atrial fibrillation
[2025-06-10 09:10] LABS: Alanine Aminotransferase 25 U/L (0-40); Albumin Level 4.5 g/dL (3.5-5.0); Alkaline Phosphatase 81 U/L (39-117); Anion Gap 12 (12-20); Aspartate Amino Transferase 29 U/L (5-37); Blood Urea Nitrogen 33 mg/dL (9-16); Calcium 8.9 mg/dL (8.4-10.2); Carbon Dioxide 23 mmol/L (22-29); Chloride 109 mmol/L (96-108); Creatinine Clr Calc Pharmacy 33.9; Estimated Glomerular Filt Rate 48; Magnesium 2.0 mg/dL (1.6-2.6); Potassium 4.3 mmol/L (3.3-5.1); Sodium 140 mmol/L (135-145); Total Protein 6.7 g/dL (6.5-8.0)
[2025-06-10 09:17] LABS: Troponin-I High Sensitivity 5.1 ng/L (<3.5-35.0)
--- NOTE | 2025-06-10 09:28 | ED.DIZZY ---
HPI - Dizziness General Chief Complaint: Dizziness Stated Complaint: dizzy, week, vomiting Time Seen by Provider: 06/10/25 08:50 Source: patient Mode of arrival: ambulatory Limitations: no limitations History of Present Illness HPI Narrative: This is a 85 years old male presented to the emergency department complaining of dizziness he describes the dizziness as spinning symptoms started about midnight he vomited about 5 times. Denies any chest pain or shortness of breath, he has a history of atrial fibrillation he is on apixaban elicited complaint: dizziness Pertinent past history: other (AFib on apixaban) Onset (ago): hour(s) (9) Timing: sudden onset Severity: moderate Description: sense of movement and room spinning Context: change in body position History of similar symptoms: No Exacerbating factors: nothing Relieving factors: nothing Associated symptoms: nausea and vomiting Related Data Home Medications ?Medication ?Instructions ?Recorded ?Confirmed multivitamin 1 tab PO DAILY 06/16/22 09/10/24 colchicine 0.6 mg tablet 0.6 mg PO DAILY 09/10/24 09/10/24 Previous Rx's ?Medication ?Instructions ?Recorded prednisone 10 mg tablet 10 mg PO DAILY #30 tabs 07/15/24 Eliquis 2.5 mg tablet (apixaban) 2.5 mg PO BID #180 tabs 09/10/24 metoprolol succinate 25 mg 25 mg PO DAILY #90 tabs 01/01/25 tablet,extended release 24 hr meclizine 25 mg tablet 25 mg PO TID PRN dizziness #15 tabs 06/10/25 ondansetron 4 mg disintegrating 4 mg PO Q8H 5 days #15 tabs 06/10/25 tablet Allergies Allergy/AdvReac Type Severity Reaction Status Date / Time No Known Allergies Allergy Verified 06/10/25 08:25 Review of Systems Review of Systems: Yes all other systems are reviewed and are negative ENT: Reports as per HPI [facility] Past Medical History Attestation statement: The following information was validated with the patient. Medical History Left inguinal hernia Chronic renal disease, stage 3, moderately decreased glomerular filtration rate (GFR) between 30-59 mL/min/1.73 square meter Annual physical exam Lung cancer Renal cell cancer Nephrolithiasis Gross hematuria Atrial fibrillation Surgical History Hx of left inguinal hernia repair (12/04/23) History of lobectomy of lung History of right nephrectomy H/O colonoscopy History of parathyroidectomy Family History Family History Father No problems noted. Mother Heart problem Brother Prostate cancer metastatic to bone Social History Social History Housing: House Alcohol intake: current Alcohol intake frequency: a few times a week Alcohol type: wine Patient Tobacco Use Status: Former Tobacco user Smoked in Last 30 Days: No e-Cigarette/Vaping Use: Never Used Use of substances other than those prescribed or required for medical reasons: No Advance Directives: No Advance Directives Information Provided: Yes Do you have a plan to hurt others: No Plan service: No Current occupational status: retired Cognitive needs: No Hearing needs: No Vision needs: No Physical Exam Exam: Exam: Awake alert oriented x3 Vital Signs: Vital Signs: Last Vital Signs Temp 98.2 F 06/10/25 08:23 Pulse 74 06/10/25 14:00 Resp 18 06/10/25 14:00 BP 123/59 L 06/10/25 14:00 Pulse Ox 98 06/10/25 14:00 O2 Del Method Room Air 06/10/25 14:00 BMI result Body Mass Index 24.1 Const: General: cooperative Nutritional Appearance: well nourished Orientation/consciousness: patient oriented x3 Limitations: no limitations HEENT: Head: Yes normal to inspection General nose exam: Normal external nose present Face and sinus: Yes normal facial exam Mouth: Normal oral and palatal mucosa present Neck: Neck: Yes normal visual inspection Chest: Chest palpation & inspection: normal inspection of the chest Resp: Effort & Inspection: normal respiratory effort Auscultation: clear to auscultation bilaterally Cardio: Jugular venous distension: no JVD Rate: regular rate Rhythm: regular rhythm GI: Inspection: Yes normal to inspection Palpation (GI): Soft to palpation, not firm and nontender Percussion: Yes normal to percussion Skin: General skin exam: no rashes or lesions noted Lesions: no lesions Rashes: no rashes Neuro: General: patient oriented x3 Cranial nerves: Yes CN's II-XII intact bilaterally Motor exam (neuro): 5/5 motor strength present throughout NIH Stroke Scale Level of Consciousness: Alert Level of Consciousness Questions: Answers both questions correctly Level of Consciousness Commands: Performs both tasks correctly Best Gaze: Normal Visual: No visual loss Facial Palsy: Normal Motor Arm (Right): No drift Motor Arm (Left): No drift Motor Leg (Right): No drift Motor Leg (Left): No drift Limb Ataxia: Absent Sensory: Normal Best Language: No aphasia Dysarthia: Normal Extinction and Inattention: No abnormality Score: 0 Course Reevaluation(s) Reevaluation #1: I re-examined the patient at this time is doing much better, workup showed a normal MRI so no evidence of CVA, this point he feels much better I think he can be discharged home he will follow-up with the PCP I spoke at length with him is son the comfortable with the plan of care Time: 13:55 Reevaluation #2: Patient was seen also by a physical therapy Apley maneuver done by a physical therapy, able to ambulate without any problem anticipate discharge he is very comfortable with the plan Time: 15:25 Medications Administered Discontinued Medications Generic Name Dose Route Start Last Admin Trade Name Freq PRN Reason Stop Dose Admin Sodium Chloride 1,000 mls @ 999 mls/hr 06/10/25 09:15 06/10/25 09:21 Ns IVCONT 06/10/25 10:15 999 mls/hr .Q1H1M EDIN Administration Iohexol 70 ml 06/10/25 09:38 06/10/25 09:39 Iohexol 350 Mg/Ml 100 Ml Infus..Btl IV 06/10/25 09:39 70 ml ONCE ONE Administration Meclizine HCl 25 mg 06/10/25 09:08 06/10/25 09:20 Meclizine Hcl 25 Mg Tablet PO 06/10/25 09:09 25 mg ONCE ONE Administration Ondansetron HCl 4 mg 06/10/25 09:08 06/10/25 09:20 Ondansetron Hcl 4 Mg/2 Ml Vial IVPUSH 06/10/25 09:09 4 mg ONCE ONE Administration Medical Decision Making Medical Decision Making MDM Narrative: Patient is here for dizziness we will obtain labs electrocardiogram head CT Differential Diagnosis Differential Diagnoses: The differential diagnosis associated with the presentation includes Vertigo/cerebellar stroke/for poisoning Admission/Observation Consideration of admission/observation: Escalation of care including admission/observation considered Lab Data MDM Lab Attestation statement: I reviewed the patient's lab results. 06/10/25 08:50 06/10/25 08:50 Labs: Lab Results 06/10/25 Range/Units 08:50 WBC 6.9 (4.8-10.8) X10*3/uL RBC 3.51 L (4.60-5.80) X10*6/uL Hgb 11.2 L (14.0-18.0) g/dl Hct 32.9 L (42.0-52.0) % MCV 93.7 (80.0-98.0) fL MCH 31.9 (27.0-33.0) pg MCHC 34.0 (31.0-36.0) g/dl RDW 14.5 (11.0-16.0) % Plt Count 147 L (160-400) X10*3/uL MPV 12.1 (9.4-12.4) fL Immature Gran % (Auto) 0.3 (0.0-0.4) % Neut % (Auto) 89.0 H (45-73) % Lymph % (Auto) 8.4 L (20-40) % [place] % (Auto) 2.2 (2-11) % Eos % (Auto) 0.0 (0-4) % Baso % (Auto) 0.1 (0-2) % Lymph # (Auto) 0.6 L (1.2-4.9) X10*3/uL [place] # (Auto) 0.2 (0.1-1.2) X10*3/uL Eos # (Auto) 0.0 (0.0-0.4) X10*3/uL Baso # (Auto) 0.0 (0.0-0.2) X10*3/uL Abs Immat Gran (auto) 0.02 (0.00-0.03) X10*3/uL Absolute Neuts (auto) 6.1 (2.0-8.3) x10*3/uL Absolute Nucleated RBC 0.000 (0.0-0.012) X10*3/uL Nucleated RBC % (auto) 0.0 (0.0-0.2) /100WBC Sodium 140 (135-145) mmol/L Potassium 4.3 (3.3-5.1) mmol/L Chloride 109 H (96-108) mmol/L Carbon Dioxide 23 (22-29) mmol/L Anion Gap 12 (12-20) BUN 33 H (9-16) mg/dL Creatinine 1.41 H (0.5-1.4) mg/dL Estim Creat Clear Calc 33.9 Estimated GFR 48 Random Glucose 129 H (60-115) mg/dL Calcium 8.9 D (8.4-10.2) mg/dL Magnesium 2.0 (1.6-2.6) mg/dL Total Bilirubin 1.6 H (0.0-1.0) mg/dL AST 29 (5-37) U/L ALT 25 (0-40) U/L Alkaline Phosphatase 81 (39-117) U/L Troponin I High Sens 5.1 (<3.5-35.0) ng/L Total Protein 6.7 (6.5-8.0) g/dL Albumin 4.5 (3.5-5.0) g/dL Independent Interpretation I performed an independent interpretation of an: EKG and MRI Interpretation: Atrial fibrillation with controlled rate 81 Radiology Impression Discussion of test interpretation with radiology: I have reviewed the radiologist's reading. Radiologist Impression: no CVA Independent Historian Clinical information obtained from an independent historian. History obtained from or confirmed by: Other (Son) External Record Review External record reviewed: Inpatient record and Office record Prescription Management I considered prescription management with: Other antinausea/meclizine Chronic Conditions Patient?s care impacted by: Other A Fib on Eliquis Discharge Plan Discharge Clinical Impression: Dizziness Patient Disposition: Home, Self-Care Instructions: Dizziness (ED) Additional Instructions: Follow-up with your primary care physician, we called a prescription for your for meclizine and Zofran Prescriptions: New meclizine 25 mg tablet 25 mg PO TID PRN (Reason: dizziness) Qty: 15 0RF ondansetron 4 mg tablet,disintegrating 4 mg PO Q8H 5 Days Qty: 15 0RF No Action metoprolol succinate 25 mg tablet extended release 24 hr 25 mg PO DAILY Qty: 90 3RF multivitamin Tablet 1 tab PO DAILY prednisone 10 mg tablet 10 mg PO DAILY Qty: 30 0RF Rx Instructions: 2 tabl QD for 1 week, then 1 qd colchicine 0.6 mg tablet 0.6 mg PO DAILY Eliquis 2.5 mg tablet 2.5 mg PO BID Qty: 180 3RF Referrals: Adriana Cox MD [Primary Care Provider, Internal Medicine] - 06/16/25 Print Language: Portuguese
[2025-06-10] MEDS: iohexoL 350 MG/ML 100 ML INFUS..BTL 70 ML IV (09:39)
--- OUTSIDE RECORDS SUMMARY | 2025-06-10 09:44 | XMS_ITS | Encounter Summary ---
Author Organization [facility] Address [address] [address] Phone Care Team Providers Care Emergency Response Officer Name Role Phone Adriana Cox MD Primary Care Provider [phone] Jose Martinez MD Unavailable [phone] Ha Pham MD Unavailable Unavailable Adriana Cox MD Primary Care Provider [phone] Encounter Details Date Type Department Care Team (Late st Contact Info) Description 08/24/2020 Procedure Pass [facility] [place] Imaging - RF/IR [address] [place] [address] Social History Tobacco Use Types Packs/Day Years Used Date Smoking Tobacco: Former Cigarettes 0.3 23 1 960 - 1982 Smokeless Tobacco: Never Alcohol Use Standard Drinks/Week Comments Yes 1 (1 standard drink = 0.6 oz pur e alcohol) Sex and Gender Information Value Date Recorded Sex Assigned at Male 11/19/2020 3:06 PM EST Legal Sex Male 11:42 AM EDT Gender Identity Male 11/19/2020 3:06 PM EST Sexual Orientation Straight 11/19/2020 3: 06 PM EST documented as of this encounter Plan of Treatment Not on file documented as of this encounter Visit Diagnoses Not on filedocumented in this encounter Care Teams Emergency Response Officer Relationship Specialty Start Date End Date Adriana Cox MD [address] [place] [address] PCP - General Internal Medicine 08/18/20 05/18/22 Adriana Cox MD [address] [place] [address] [place] [address] PCP - General Internal Medicine 05/19/22 Jose Martinez MD [address] [place] [id number] [email or web address] Primary Oncologist Medical Oncology 09/15/20 Ha Pham MD Cardiology 09/27/20 documented as of this encounter Additional Source Comments The information contained in this document represents components of the legal health record. It is not the complete legal health record.[facility]
--- OUTSIDE RECORDS SUMMARY | 2025-06-10 09:44 | XMS_ITS | Clinical Summary ---
Author Organization [facility] Address [address] [place] [address] Care Team Providers Care Trimmer Loader Name Role Phone David Ricks MD Primary Care Provider [phone] Allergies No known active allergies Medications Medication Sig Dispensed Refills Start Date End Date Status metoprolol tartrate (LOPRESSOR) 25 MG tablet Take 25 mg by mouth 2 (two) times a day. 0 Active warfarin (COUMADIN) 2.5 MG tablet Take 2.5 mg by mouth daily. 0 Active Active Problems Problem Noted Date Diagnosed Date Chronic anticoagulation 08/10/2020 Nephrolithiasis 08/10/2020 Kidney mass 08/03/2020 Overview: Overview: Suspicious for renal cell ca; 4 cm lobulated right kidney mass Lung nodule 08/03/2020 Overview: Overview: 2 cm lung nodule, right lower lobe noted on CT of the abdomen and pelvis on 08/03/2020. Atrial fibrillation 02/10/2010 Disorder of bone and cartilage 01/22/2006 Hyperparathyroidism 01/22/2006 Overview: Overview: parathyroid adenoma removed 1999 Family History Medical History Relation Name Comments Kidney cancer Brother Stomach cancer Maternal Uncle 1 Stomach cancer Maternal Uncle 2 Relation Name Status Comments Brother Maternal Uncle 1 Maternal Uncle 2 Social History Tobacco Use Types Packs/Day Years Used Date Smoking Tobacco: Former Cigarettes 0.3 22 0 11/19/1959 - 11/19/1982 Smokeless Tobacco: Never Alcohol Use Standard Drinks/Week Comments Yes 7 (1 standard drink = 0.6 oz pur e alcohol) Sex and Gender Information Value Date Recorded Sex Assigned at Not on file Gender Identity Not on file Sexual Orientation Not on file Last Filed Vital Signs Vital Sign Reading Time Taken Comments Blood Pressure 148/84 08/10/2020 10:36 AM EDT Pulse 89 08/10/2020 10:36 AM EDT Temperature 37.5 C (99.5 F) 08/10/2020 10:36 AM EDT Respiratory Rate - - Oxygen Saturation - - Inhaled Oxygen Concentration - - Weight 72.1 kg (159 lb) 08/10/2020 10:36 AM EDT Height 165.1 cm (5' 5 ) 08/10/2020 10:36 AM EDT Body Mass Index 26.46 08/10/2020 10:36 AM EDT Plan of Treatment Health Maintenance Due Date Last Done Comments COVID-19 Vaccine (#1) 1941 Depression Screening 1953 Preventative Health Evaluation 1959 DTap / Tdap / Td (1 - Tdap) 1960 Shingrix-Zoster Vaccine (1 of 2) 1991 Fall Risk Assessment 2006 RSV Adult > 60+ Yrs or (1 - 1-dose 75+ series) 2016 Influenza Vaccine (#1) 2025 6, 10/01/2015, 10/21/2014, Additional history exists Pneumococcal Vaccine Completed 10/18/2016, 01/19/20 10 Hepatitis B Vaccines Aged Out No long er eligible based on patient's age to complete this topic RSV Ped < 20 months Aged Out No longe r eligible based on patient's age to complete this topic Care Teams Trimmer Loader Relationship Specialty Start Date End Date David Ricks MD PCP - General Endocrinology 08/09/20
[2025-06-10 10:00] VITALS: BP 145/72; PULSE 84; RESP 13; O2SAT 99
--- NOTE | 2025-06-10 10:51 | PC.NURSE ---
Attempted to ambulate patient and patient still ataxic and unsteady. Brain MRI ordered.
[2025-06-10 12:00] VITALS: BP 126/73; PULSE 84; RESP 16; O2SAT 99
--- NOTE | 2025-06-10 12:39 | PC.NURSE ---
Sent for MRI
[2025-06-10 14:00] VITALS: BP 123/59; PULSE 74; RESP 18; O2SAT 98
[2025-06-10 15:39] VITALS: BP 123/59; PULSE 74; RESP 18; TEMP 36.7; O2SAT 98
== END 2025-06-10 15:40 | disposition home or self-care (01) ==
PROVIDERS: Emergency Provider Emergency Medicine; PCP Internal Medicine
DX: R42 Dizziness and giddiness (principal); R11.2 Nausea with vomiting, unspecified; I48.91 Unspecified atrial fibrillation; R26.81 Unsteadiness on feet; Z79.01 Long term (current) use of anticoagulants; Z79.899 Other long term (current) drug therapy
CPT/HCPCS: 36415; 70496; 70498; 70551; 80053; 83735; 84484; 85025; 93005; 96374; 97162; 99285; J2405; Q9967

== ENCOUNTER → 2025-06-10 08:54 | Outpatient (BNV) | payer MEDICARE, SELFPAY | PROVIDERS: Emergency Provider Emergency Medicine; PCP Internal Medicine; Visit Provider Internal Medicine Cardiovascular Disease | DX: I48.91 Unspecified atrial fibrillation (principal) | CPT/HCPCS: 93010 ==

== ENCOUNTER → 2025-06-10 09:09 | Outpatient (BNV) | payer MEDICARE, SELFPAY | PROVIDERS: Emergency Provider Emergency Medicine; PCP Internal Medicine; Visit Provider Radiology Diagnostic Radiology | DX: R42 Dizziness and giddiness (principal) | CPT/HCPCS: 70496; 70498; 70551 ==

== ENCOUNTER 2025-07-16 08:27 | Outpatient (AMB) | payer MEDICARE, SELFPAY ==
--- NOTE | 2025-07-16 08:29 | MHC.PC.OV ---
Vital Signs 07/16/25 08:30 Height 5 ft 5 in Weight 149 lb BMI 24.8 BP 116/74 Blood Pressure Location Lt brachial Position Sitting Respiration 18 Pulse 86 Pulse Source Pulse Oximeter Temp 98.0 F Temp Source Oral Pulse Oximetry (%) 100 Oxygen Delivery Method Room Air Intake Visit Reasons: Annual PE Intake Note: Pt is here today for PE. Allergies No Known Allergies Allergy (Verified 07/16/25 08:30) Medication List - Last Reconciled 07/16/25 by Adriana Cox MD colchicine 0.6 mg PO DAILY Eliquis (apixaban) 2.5 mg PO BID NS methotrexate sodium 10 mg PO QWEEK metoprolol succinate ER 25 mg PO DAILY multivitamin 1 tab PO DAILY Tobacco use date assessed: 07/16/25 Fall risk assessment: No Falls in past year Last assessed Fall Risk: 07/16/25 Dental Screening Dental Screen Date: 07/16/25 Did you have a dental visit in the last 12 months?: No Did you have a dental problem in the last 6 months where you did not have access to dental care?: No Was dental information given to patient?: Patient declined HPI Annual PE HPI Details Pt presents for PE. Patient went to the ER last month with the symptoms of acute vertigo. Brain MRI and CT angiogram of head and neck were negative for an acute abnormalities. Patient reports feeling slightly off balance when walking but denies weakness or numbness in extremities, headaches, change in the vision nausea vomiting. [facility], [facility] Medical History (Updated 07/16/25 @ 09:11 by Adriana Cox MD) Left inguinal hernia Chronic renal disease, stage 3, moderately decreased glomerular filtration rate (GFR) between 30-59 mL/min/1.73 square meter Annual physical exam Lung cancer Renal cell cancer Nephrolithiasis Gross hematuria Atrial fibrillation Surgical History Hx of left inguinal hernia repair (12/04/23) History of lobectomy of lung History of right nephrectomy H/O colonoscopy History of parathyroidectomy Family History Father No problems noted. Mother Heart problem Brother Prostate cancer metastatic to bone Social History Housing: House Alcohol intake: current Alcohol intake frequency: a few times a week Alcohol type: wine Patient Tobacco Use Status: Former Tobacco user e-Cigarette/Vaping Use: Never Used service: No Current occupational status: retired Cognitive needs: No Hearing needs: No Vision needs: No Questionnaire PHQ-9 Over the last 2 weeks, how often have you been bothered by any of the following problems? 1. Little interest or pleasure in doing things: not at all 2. Feeling down, depressed, or hopeless: not at all 3. Trouble falling or staying asleep, or sleeping too much: not at all 4. Feeling tired or having little energy: not at all 5. Poor appetite or overeating: not at all 6. Feeling bad about yourself - or that you are a failure or have let yourself or your family down: not at all 7. Trouble concentrating on things, such as reading the newspaper or watching television: not at all 8. Moving or speaking so slowly that other people could have noticed. Or the opposite - being so fidgety or restless that you have been moving around a lot more than usual: not at all 9. Thoughts that you would be better off or of hurting yourself in some way: not at all Total score: 0 Depression Screening Interpretation: Negative Depression Screening Done: Yes 34925 - PHQ-9 Billing: Yes Source: Developed by Drs. Gray Carmichael, Roxanna Bacon, Paulie John and colleagues, with an educational desmond from [employer]. Thrive Questionnaire Date Thrive assessed: 07/16/25 I am a: Patient What is your living situation today?: I have a steady place to live Within the past 12 months, did the food you bought not last and you didn't have the money to get more?: Never true Within the past 12 months, did you worry whether your food would run out before you got money to buy more?: Never true Do you have trouble paying for medicines?: No Do you have trouble getting transportation to medical appointments?: No Do you have trouble paying your heating and electricity bill?: No Do you have trouble taking care of your child, family member or friend?: No Do you have trouble with day-to-day activities such as bathing, preparing meals, shopping, managing finances, etc.?: No Are you currently unemployed and looking for a job?: No Are you interested in more education?: No Please select the resources that you would like help with: None THRIVE Score: 0 AUDIT C Alcohol Use Questionnaire (AUDIT-C) 1. How often do you have a drink containing alcohol?: Never 3. How often do you have six or more drinks on one occasion?: Never Total Score: 0 TARA-7 AMB Questionnaire TARA-7 Date TARA - 7 assessed: 07/16/25 Feeling nervous, anxious, or on edge: 0 = Not at all Not being able to stop or control worryin = Not at all Worrying too much about different things: 0 = Not at all Trouble relaxin = Not at all Being so restless that it is hard to sit still: 0 = Not at all Becoming easily annoyed or irritable: 0 = Not at all Feeling afraid as if something awful might happen: 0 = Not at all Total TARA-7 score (0-4 normal; 5-9 mild; 10-14 moderate; 15-21 severe): 0 Source: Developed by Drs. Gray Carmichael, Roxanna Bacon, Paulie John and colleagues, with an educational desmond from [employer]. TARA-7 Assessment Billing TARA-7 Assessment Tool: TARA-7 Assessment 28624 Review of Systems Const All systems reviewed & are unremarkable except as noted in HPI and below Eyes Reports no additional complaints ENT Reports no additional complaints Card Reports no additional complaints Resp Reports no additional complaints GI Reports no additional complaints Reports no additional complaints Physical exam (Primary Care) Vital Signs: Last Vital Signs Temp 98.0 F 07/16/25 08:30 Pulse 86 07/16/25 08:30 Resp 18 07/16/25 08:30 BP 116/74 07/16/25 08:30 Pulse Ox 100 07/16/25 08:30 Oxygen Delivery Method Room Air 07/16/25 08:30 BMI result Body Mass Index 24.8 Tobacco/Smoking Status: Tobacco use Status Tobacco use date assessed 07/16/25 07/16/25 08:33 Patient Tobacco Use Status Former Tobacco user 07/16/25 08:33 e-Cigarette/Vaping Use Never Used 07/16/25 08:33 PHQ-9: PHQ-9 Score PHQ-9: Total score 0 07/16/25 08:37 Depression Screening Interpretation: Negative Thrive Assessment: Date of Thrive Assessment Date Thrive assessed 07/16/25 07/16/25 08:33 Const General: no acute distress Orientation/consciousness: patient oriented x3 HENMT Head: Yes normal to inspection Ears: TM's normal bilaterally Mouth: Normal oral and palatal mucosa present Eyes General: appearance normal, both eyes and all related structures Neck Neck: Yes no lymphadenopathy and Yes supple Resp Effort & Inspection: normal respiratory effort Auscultation: clear to auscultation bilaterally Cardio Rhythm: regular rhythm Heart sounds: S1 normal heart sound present and S2 normal heart sound present GI Inspection: Yes normal to inspection Palpation (GI): Soft to palpation Percussion: Yes normal to percussion Auscultation: normal bowel sounds Neuro General: patient oriented x3 and gait normal Cranial nerves: Yes CN's II-XII intact bilaterally Gait exam (Neuro): Normal gait present Motor exam (neuro): 5/5 motor strength present throughout Romberg Test: Negative Coding Level of Care Code Est Pt Prev Care >65y(40378) Diagnoses Chronic renal disease, stage 3, moderately decreased glomerular filtration rate (GFR) between 30-59 mL/min/1.73 square meter N18.30 Anemia D64.9 Balance disorder R26.89 Atrial fibrillation I48.91 Lung cancer C34.90 Renal cell cancer C64.9 Arthritis M19.90 Additional Codes TARA-7 Assessment Billing - TARA-7 Assessment Tool: TARA-7 Assessment 39495 ([id number]) PHQ-9 - 25365 - PHQ-9 Billing: Yes ([id number]) Assessment & Plan Assessment & Plan (1) Chronic renal disease, stage 3, moderately decreased glomerular filtration rate (GFR) between 30-59 mL/min/1.73 square meter: Comment: Monitor renal function function Code(s): N18.30 - Chronic kidney disease, stage 3 unspecified Category: Medical Plan: Monitor renal function avoid nephrotoxins (2) Anemia: Code(s): D64.9 - Anemia, unspecified Category: Medical Plan: Repeat CBC obtain iron studies check B12 and folic acid level (3) Balance disorder: Code(s): R26.89 - Other abnormalities of gait and mobility Category: Medical Plan: Referred to physical therapy (4) Atrial fibrillation: Comment: Dr. Pham Code(s): I48.91 - Unspecified atrial fibrillation Category: Medical Plan: Rate controlled on metoprolol anticoagulated on Eliquis (5) Lung cancer: Comment: s/p R lobectomy for non small ca 10/2020 f/u [facility], CT SCAN Q 6 months Code(s): C34.90 - Malignant neoplasm of unspecified part of unspecified bronchus or lung Category: Medical Plan: Follow-up with thoracic surgeon at [facility] (6) Renal cell cancer: Comment: s/p R nephrectomy 09/2020 f/u [facility] Code(s): C64.9 - Malignant neoplasm of unspecified kidney, except renal pelvis Category: Medical Plan: Follow-up with [facility] (7) Arthritis: Comment: Seronegative responsive to prednisone, follows up with supervisor operations in [place] ? PMR Code(s): M19.90 - Unspecified osteoarthritis, unspecified site Category: Medical Plan: Controlled on methotrexate , follow-up with rheumatology Orders: Orders Complete Blood Count Auto Diff Today D64.9 - Anemia, unspecified, N18.30 - Chronic kidney disease, stage 3 unspecified Vitamin B12 and Folate Today D64.9 - Anemia, unspecified, N18.30 - Chronic kidney disease, stage 3 unspecified Uric Acid Today D64.9 - Anemia, unspecified, N18.30 - Chronic kidney disease, stage 3 unspecified PT Evaluation and Treatment Today R26.89 - Other abnormalities of gait and mobility IRON PROFILE Today D64.9 - Anemia, unspecified, N18.30 - Chronic kidney disease, stage 3 unspecified Immunofixation Pnl, Serum Today D64.9 - Anemia, unspecified, N18.30 - Chronic kidney disease, stage 3 unspecified Comprehensive Met. Panel Today D64.9 - Anemia, unspecified, N18.30 - Chronic kidney disease, stage 3 unspecified Comprehensive [place]. Panel Fast 6 Months C34.90 - Malignant neoplasm of unspecified part of unspecified bronchus or lung, C64.9 - Malignant neoplasm of unspecified kidney, except renal pelvis, D64.9 - Anemia, unspecified, M10.9 - Gout, unspecified Complete Blood Count Auto Diff 6 Months C34.90 - Malignant neoplasm of unspecified part of unspecified bronchus or lung, C64.9 - Malignant neoplasm of unspecified kidney, except renal pelvis, D64.9 - Anemia, unspecified, M10.9 - Gout, unspecified
[2025-07-16 08:30] VITALS: BP 116/74; PULSE 86; RESP 18; TEMP 36.7; O2SAT 100; BMI 24.8
--- OUTSIDE RECORDS SUMMARY | 2025-07-16 09:05 | XMS_ITS | Encounter Summary ---
Author Organization [facility] Address [address] [address] Phone Care Team Providers Care Medical Microbiologist Name Role Phone Adriana Cox MD Primary Care Provider [phone] Jose Martinez MD Unavailable [phone] Ha Pham MD Unavailable Unavailable Adriana Cox MD Primary Care Provider [phone] Encounter Details Date Type Department Care Team (Late st Contact Info) Description 08/24/2020 Procedure Pass [facility] Imaging - RF/IR [address] [place] [address] Social History Tobacco Use Types Packs/Day Years [...] on filedocumented in this encounter Care Teams Medical Microbiologist Relationship Specialty Start Date End Date Adriana Cox MD [address] [facility] [place] [address] PCP - General Internal Medicine 08/18/20 05/18/22 Adriana Cox MD [address] [place] [address] [place] [address] PCP - General Internal Medicine 05/19/22 Jose Martinez MD [address] [place] [id number] [email or web address] Primary Oncologist Medical Oncology 09/15/20 Ha Pham MD Cardiology 09/27/20 documented as of this encounter Additional Source Comments The information contained in this document represents components of the legal health record. It is not the complete legal health record.[facility]
--- OUTSIDE RECORDS SUMMARY | 2025-07-16 09:06 | XMS_ITS | Encounter Summary ---
Author Organization [facility] Address [address] [email or web address] [facility] [address] [place] [address] Phone Care Team Providers Care Screen Door Maker Name Role Phone Adriana Cox MD Primary Care Provider [phone] Jose Martinez MD Unavailable [phone] Ha Pham MD Unavailable Unavailable Adriana Cox MD Primary Care Provider [phone] Reason for Referral * Outpatient Procedure - Closed Specialty Diagnoses / Procedures Referred By Nataly ohcoa Referred To Contact Radiology Diagnoses Right kidney mass Procedures US Biopsy Kidney Focal (Right) CT Biopsy Kidney Focal (Right) VT RENAL BIOPSY PRQ TROCAR/NEEDLE CHG SONO GUIDE NEEDLE BIOPSY Nakul Arguello MD Phone: tel: fax: mailto:[email or web address] Referral ID Status Reason Start Date Expiration Date Visits Re quested Visits Authorized [id number] Closed 08/27/2020 08/27/2020 1 1 Encounter Details Date Type Department Care Team (Late st Contact Info) Description 08/27/2020 Ancillary Orders [employer] [address] [place] [address] Nakul Arguello MD 1 [facility], [address] [place] [address] [email or web address] Right kidney mass Social History Tobacco Use Types Packs/Day Years Used Date Smoking Tobacco: Former Cigarettes 0.3 23 1 1982 Smokeless Tobacco: Never Alcohol Use Standard [...] on file documented as of this encounter Results * US Biopsy Kidney Focal (Right) (08/27/2020 2:15 PM EDT) Anatomical Region Laterality Modality Kidney Ultrasound 08/27/2020 2:30 PM EDT Impressions 08/27/2020 10:00 PM EDT Ultrasound guided biopsy of the mass in the lower pole of the right kidney. ATTESTATION: I, Dr. Josefina Sanchez as teaching physician, have reviewed the images for this case and if necessary edited the report originally created by Dr. Chloe Douglas Ma. Narrative 08/27/2020 10:00 PM EDT US BIOPSY KIDNEY FOCAL (RIGHT) ULTRASOUND GUIDED RENAL BIOPSY CLINICAL HISTORY: 80 year old male with history of afib on coumadin who presented with hematuria, found to have right renal mass and right lung nodule, suspicious for RCC vs TCC with lung met vs two separate primary malignancies. Resident: Dr. Chloe Douglas Ma Attending: Dr. Josefina Sanchez, present for the entire procedure Dr. Josefina Sanchez was present for the entire procedure. ANESTHESIA: Intravenous conscious sedation was administered by radiology nursing. Continuous hemodynamic and respiratory monitoring was performed, including the use of pulse oximetry. Medications: See MAR TECHNIQUE: After discussing the risks, benefits, and alternatives in detail to the patient, informed consent was obtained. The right kidney lower pole mass was identified by preliminary ultrasound. The skin was prepped and draped in sterile fashion, and the skin was anesthetized with 1% lidocaine. A 17G Bard introducer needle was advanced into the lesion under ultrasound guidance. Six18G core biopsies of the kidney lesion were obtained using a Bard biopsy system under ultrasound guidance. Gelfoam was used to achieve hemostasis. Post procedures scans revealed no immediate complications. Procedure Note Josefina Sanchez MD - 08/27/2020 US BIOPSY KIDNEY FOCAL (RIGHT) ULTRASOUND GUIDED RENAL BIOPSY CLINICAL HISTORY: 80 year old male with history of afib on coumadin whopresented with hematuria, found to have right renal mass and right lungnodule, suspicious for RCC vs TCC with lung met vs two separate primarymalignancies. Resident: Dr. Chloe Douglas Ma Attending: Dr. Josefina Sanchez, present for the entire procedure Dr. Josefina Sanchez was present for the entire procedure. ANESTHESIA: Intravenous conscious sedation was administered by radiologynursing. Continuous hemodynamic and respiratory monitoring was performed,including the use of pulse oximetry. Medications: See MAR TECHNIQUE: After discussing the risks, benefits, and alternatives in detail to thepatient, informed consent was obtained. The right kidney lower pole masswas identified by preliminary ultrasound. The skin was prepped and drapedin sterile fashion, and the skin was anesthetized with 1% lidocaine. A 17G Bard introducer needle was advanced into the lesion under ultrasoundguidance. Six18G core biopsies of the kidney lesion were obtained using aBard biopsy system under ultrasound guidance. Gelfoam was used to achievehemostasis. Post procedures scans revealed no immediate complications. IMPRESSION: Ultrasound guided biopsy of the mass in the lower pole of the rightkidney. ATTESTATION: I, Dr. Josefina Sanchez as teaching physician, have reviewed theimages for this case and if necessary edited the report originally createdby Dr. Chloe Douglas Ma. us Nakul Arguello MD IMG IR ABDOMINAL Final Res ult documented in this encounter Visit Diagnoses Diagnosis Right kidney mass Unspecified disorder of kidney and ureter Right kidney mass Unspecified disorder of kidney and ureter documented in this encounter Care Teams Screen Door Maker Relationship Specialty Start Date End Date Adriana Cox MD [address] [facility] [place] [address] PCP - General Internal Medicine 08/18/20 05/18/22 Adriana Cox MD [address] [place] [address] PCP - General Internal Medicine 05/19/22 Jose Martinez MD [address] [place] [address] [email or web address] the [email or web address] Primary Oncologist Medical Oncology 09/15/20 Ha Pham MD Cardiology 09/27/20 documented as of this encounter Additional Source Comments The information contained in this document represents components of the legal health record. It is not the complete legal health record.[facility]
--- OUTSIDE RECORDS SUMMARY | 2025-07-16 09:06 | XMS_ITS | Encounter Summary ---
Author Organization [facility] Address [address] [employer] [facility] [address] [place] [address] Phone Care Team Providers Care Legal Billing Clerk Name Role Phone Adriana Cox MD Primary Care Provider [phone] Jose Martinez MD Unavailable [phone] Ha Pham MD Unavailable Unavailable Adriana Cox MD Primary Care Provider [phone] Encounter Details Date Type Department Care Team (Late st Contact Info) Description 12/13/2021 Procedure Pass [facility], Ct Scan - [address] [address] Social History Tobacco Use Types Packs/Day Years Used Date Smoking Tobacco: Former Cigarettes 0.3 40 1 960 - 1983 Smokeless Tobacco: Never Alcohol Use Standard Drinks/Week Comments Yes 2 (1 standard drink = 0.6 oz pur [...] on filedocumented in this encounter Care Teams Legal Billing Clerk Relationship Specialty Start Date End Date Adriana Cox MD [facility] [place] [address] PCP - General Internal Medicine 08/18/20 05/18/22 Adriana Cox MD [address] [place] [address] [place] [address] PCP - General Internal Medicine 05/19/22 Jose Martinez MD [address] [place] [address] [email or web address] [email or web address] Primary Oncologist Medical Oncology 09/15/20 Ha Pham MD Cardiology 09/27/20 documented as of this encounter Additional Source Comments The information contained in this document represents components of the legal health record. It is not the complete legal health record.[facility]
--- OUTSIDE RECORDS SUMMARY | 2025-07-16 09:06 | XMS_ITS | Encounter Summary ---
Author Organization [facility] Address [address] [employer] [facility] [address] [place] [address] Phone Care Team Providers Care Celebrity Chef Entrepreneur Media Personality Name Role Phone Jose Martinez MD Unavailable Ha Pham MD Unavailable Unavailable Adriana Cox MD Primary Care Provider [phone] Encounter Details Date Type Department Care Team (Late st Contact Info) Description 06/11/2022 Procedure Pass [facility], Ct Scan - [address] [address] Social History Tobacco Use Types Packs/Day Years [...] on filedocumented in this encounter Care Teams Celebrity Chef Entrepreneur Media Personality Relationship Specialty Start Date End Date Adriana Cox MD [address] [place] [address] PCP - General Internal Medicine 05/19/22 Jose Martinez MD [address] [place] [address] [email or web address] Primary Oncologist Medical Oncology 09/15/20 Ha Pham MD Cardiology 09/27/20 documented as of this encounter Additional Source Comments The information contained in this document represents components of the legal health record. It is not the complete legal health record.[facility]
--- OUTSIDE RECORDS SUMMARY | 2025-07-16 09:06 | XMS_ITS | Encounter Summary ---
Author Organization [facility] Address [address] [employer] [address] [address] Phone Care Team Providers Care Dull Coat Mill Operator Name Role Phone Adriana Cox MD Primary Care Provider [phone] Jose Martinez MD Unavailable [phone] Ha Pham MD Unavailable Unavailable Adriana Cox MD Primary Care Provider [phone] Encounter Details Date Type Department Care Team (Late st Contact Info) Description 10/01/2020 Procedure Pass [facility] [address] [place] [phone] Social History Tobacco Use Types Packs/Day Years [...] on filedocumented in this encounter Care Teams Dull Coat Mill Operator Relationship Specialty Start Date End Date Adriana Cox MD [address] [place] [address] PCP - General Internal Medicine 08/18/20 05/18/22 Adriana Cox MD [address] [place] [address] [place] [address] PCP - General Internal Medicine 05/19/22 Jose Martinez MD [address] [place] [address] [email or web address] Primary Oncologist Medical Oncology 09/15/20 Ha Pham MD Cardiology 09/27/20 documented as of this encounter Additional Source Comments The information contained in this document represents components of the legal health record. It is not the complete legal health record.[facility]
--- OUTSIDE RECORDS SUMMARY | 2025-07-16 09:06 | XMS_ITS | Encounter Summary ---
Author Organization [facility] Address [address] [facility] [address] [place] [address] Phone Care Team Providers Care Accounting System Expert Name Role Phone Adriana Cox MD Primary Care Provider Jose Martinez MD Unavailable [phone] Ha Phma MD Unavailable Unavailable Adriana Cox MD Primary Care Provider [phone] Encounter Details Date Type Department Care Team (Late st Contact Info) Description 11/23/2020 Procedure Pass [facility], Ct Scan - [address] [address] Social History Tobacco Use Types Packs/Day Years [...] on filedocumented in this encounter Care Teams Accounting System Expert Relationship Specialty Start Date End Date Adriana Cox MD [facility] [place] [address] PCP - General Internal Medicine 08/18/20 05/18/22 Adriana Cox MD [address] [place] [address] [place] [address] PCP - General Internal Medicine 05/19/22 Jose Martinez MD [address] [place] [address] [email or web address] Primary Oncologist Medical Oncology 09/15/20 Ha Pham MD Cardiology 09/27/20 documented as of this encounter Additional Source Comments The information contained in this document represents components of the legal health record. It is not the complete legal health record.[facility]
--- OUTSIDE RECORDS SUMMARY | 2025-07-16 09:06 | XMS_ITS | Clinical Summary ---
Author Organization [facility] Address [address] [place] [address] Care Team Providers Care Log Haul Operator Name Role Phone David Ricks MD Primary Care Provider [phone] Allergies No known active allergies Medications Medication [...] age to complete this topic Care Teams Log Haul Operator Relationship Specialty Start Date End Date David Ricks MD PCP - General Endocrinology 08/09/20
--- OUTSIDE RECORDS SUMMARY | 2025-07-16 09:06 | XMS_ITS | Encounter Summary ---
Author Organization [employer] [facility] Address [address] [employer] [facility] [address] [place] [address] Phone Care Team Providers Care Quality Control Lab Technician Name Role Phone Unknown, Unknown Primary Care Provider Adriana Méndez MD Primary Care Provider [phone] Jose Martinez MD Unavailable [phone] Ha Pham MD Unavailable Unavailable Adriana Cox MD Primary Care Provider [phone] Encounter Details Date Type Department Care Team (Late st Contact Info) Description 08/17/2020 Procedure Pass [facility] [place], [place] [address] [facility], 2nd Floor, [address] [place] [address] Social History Tobacco Use Types Packs/Day Years [...] PM EST documented as of this encounter Functional Status documented as of this encounter Plan of Treatment Not on file documented as of this encounter Visit Diagnoses Not on filedocumented in this encounter Care Teams Quality Control Lab Technician Relationship Specialty Start Date End Date Unknown, Unknown, PCP - General 08/16/20 08/17/20 Adriana Cox MD [address] [facility] [place] [address] PCP - General Internal Medicine 08/18/20 05/18/22 Adriana Cox MD [address] [facility] [place] [address] PCP - General Internal Medicine 05/19/22 Jose Martinez MD [address] [place] [address] [email or web address] Primary Oncologist Medical Oncology 09/15/20 Ha Pham MD Cardiology 09/27/20 documented as of this encounter Additional Source Comments The information contained in this document represents components of the legal health record. It is not the complete legal health record.[facility]
--- OUTSIDE RECORDS SUMMARY | 2025-07-16 09:06 | XMS_ITS | Clinical Summary ---
Author Organization [facility] Address [address] [place] [address] Phone Care Team Providers Care Truss Designer Name Role Phone Jose Martinez MD Unavailable [phone] Ha Pham MD Unavailable Unavailable Adriana Cox MD Primary Care Provider [phone] Allergies No known active allergies Medications therapeutic multivitamin tablet Take 1 tablet by mouth daily. Active Medication-Free Text Take 1 tablet by mouth daily. [facility] Active warfarin (COUMADIN) 2.5 MG tablet Take 1 tablet (2.5 mg total) by mouth daily. 30 tablet 10/07/2020 Active metoprolol succinate (TOPROL-XL) 25 MG 24 hr tablet Take 25 mg by mouth daily. Active Active Problems Patient Care Coordination No te Formatting of this note migh t be different from the original. Family member to accompany for cognitive deficits. Problem Noted Date Diagnosed Date Lung nodule 11/03/2020 Right renal mass 10/01/2020 Renal cell carcinoma of right kidney Cancer Staging:Pathologic stage from 10/01/2020:Stage I(pT1a, pN0, cM0) - Signed by Jose Martinez MD on 11/25/2020 Family History Medical History Relation Comments Kidney Tumors Brother uncertain if mal ignant, still alive many years after surgery Relation Status Comments Brother Social History Tobacco Use Types Packs/Day Years Used Date Smoking Tobacco: Former Cigarettes 0.3 40 1 960 - 1982 Smokeless Tobacco: Never Alcohol Use Standard Drinks/Week Comments Yes 2 (1 standard drink = 0.6 oz pur e alcohol) Education Answer Date Recorded Are you interested in more education? Not on francisco e 03/16/2023 Are you concerned about learning? Not on file 03/16/2023 No 03/16/2023 No 03/16/2023 Digital Access Answer Date Recorded No 04/17/2023 No 04/17/2023 Reliable internet access at home? Not on file 04/17/2023 Device with a working camera? Not on file Sex and Gender Information Value Date Recorded Sex Assigned at Male 11/19/2020 3:06 PM EST Legal Sex Male 11:42 AM EDT Gender Identity Male 11/19/2020 3:06 PM EST Sexual Orientation Straight 11/19/2020 3: 06 PM EST Last Filed Vital Signs Vital Sign Reading Time Taken Comments Blood Pressure 119/68 11/06/2020 4:02 AM EST Pulse 114 11/06/2020 8:16 AM EST Temperature 37.2 C (98.9 F) 11/06/2020 8:16 AM EST Respiratory Rate 18 11/06/2020 8:16 AM EST Oxygen Saturation 98% 11/06/2020 8:16 AM EST Inhaled Oxygen Concentration - - Weight 69.2 kg (152 lb 8.9 oz) 11/05/2020 7:20 A M EST Height 165.1 cm (5' 5 ) 11/03/2020 4:44 PM EST Body Mass Index 25.39 11/03/2020 4:44 PM EST Plan of Treatment Health Maintenance Due Date Last Done Comments DEPRESSION SCREENING 1952 RSV VACCINE (1 - 1-dose 75+ series) 2016 ZOSTER VACCINES (1 of 2) 06/21/2016 04/26/2016 Adult Td,Tdap Booster 01/19/2020 01/18/2010 COVID-19 VACCINE ( season) 2024 08/10/2022, 08/18/2021, 01/11/2021, Additional history exists PNEUMOCOCCAL VACCINES (50+ years) Completed 10/18/2016, 01/18/2010 HEPATITIS A VACCINES Aged Out No long er eligible based on patient's age to complete this topic HIB VACCINES Aged Out No longer eligi ble based on patient's age to complete this topic MENINGOCOCCAL VACCINES (ACWY) Aged Out No longer eligible based on patient's age to complete this topic MENINGOCOCCAL VACCINES (B) Aged Out N o longer eligible based on patient's age to complete this topic Medical Devices Implanted Type Area [employer] Burner Device Identifier Shelf Expiration Date Model / Serial / Lot Stent Stent Esophagus Insurance MEDICARE PPO BLUE REPLACEMENT MEDICARE PPO BLUE REPLACEMENT MEDICARE PPO BLUE REPLACEMENT MEDICARE PPO BLUE REPLACEMENT MEDICARE PPO BLUE REPLACEMENT MEDICARE PPO BLUE REPLACEMENT MEDICARE PPO BLUE REPLACEMENT MEDICARE PPO BLUE REPLACEMENT MEDICARE PPO BLUE REPLACEMENT Advance Directives For more information, please contact: [phone] (9AM - 5PM [facility], Sunday-Sunday) Documents on File Type Date Recorded Patient Peanut Butter Maker Expl anation Healthcare Proxy 11/05/2020 1:19 PM * Full Code (Latest Code Status on File) Date Activated Date Inactivated Comments 11/03/2020 11:36 AM Question Answer Comments Code Status Confirmed With: Patient Care Teams Truss Designer Relationship Specialty Start Date End Date Adriana Cox MD [address] [facility] [place] [address] PCP - General Internal Medicine 05/19/22 Jose Martinez MD [address] [place] [address] [email or web address] Primary Oncologist Medical Oncology 09/15/20 Ha Pham MD Cardiology 09/27/20 Additional Source Comments The information contained in this document represents components of the legal health record. It is not the complete legal health record.[facility]
--- OUTSIDE RECORDS SUMMARY | 2025-07-16 09:06 | XMS_ITS | Encounter Summary ---
Author Organization [facility] Address [address] [employer] [place] [address] [place] [address] Phone Care Team Providers Care Teacher Vocational Training Name Role Phone Jose Martinez MD Unavailable Ha Pham MD Unavailable Unavailable Adriana Cox MD Primary Care Provider Encounter Details Date Type Department Care Team (Late st Contact Info) Description 02/03/2023 Procedure Pass [facility], Ct Scan - [address] [address] Social History Tobacco Use Types Packs/Day Years [...] on filedocumented in this encounter Care Teams Teacher Vocational Training Relationship Specialty Start Date End Date Adriana Cox MD [address] [facility] [place] [address] PCP - General Internal Medicine 05/19/22 Jose Martinez MD [address] [place] [address] [email or web address] Primary Oncologist Medical Oncology 09/15/20 Ha Pham MD Cardiology 09/27/20 documented as of this encounter Additional Source Comments The information contained in this document represents components of the legal health record. It is not the complete legal health record.[facility]
--- OUTSIDE RECORDS SUMMARY | 2025-07-16 09:06 | XMS_ITS | Encounter Summary ---
Author Organization [facility] Address [address] [employer] [facility] [address] [place] [address] Phone Care Team Providers Care Cooking Casing And Drying Supervisor Name Role Phone Adriana Cox MD Primary Care Provider [phone] Jose Martinez MD Unavailable [phone] Ha Pham MD Unavailable Unavailable Adriana Cox MD Primary Care Provider Encounter Details Date Type Department Care Team (Late st Contact Info) Description 06/10/2021 Procedure Pass [facility], Ct Scan - [address] [address] Social History Tobacco Use Types Packs/Day Years [...] on filedocumented in this encounter Care Teams Cooking Casing And Drying Supervisor Relationship Specialty Start Date End Date Adriana Cox MD [facility] [address] PCP - General Internal Medicine 08/18/20 05/18/22 Adriana Cox MD [address] [place] [address] [place] [address] PCP - General Internal Medicine 05/19/22 Jose Martinez MD [address] [place] [address] [email or web address] Primary Oncologist Medical Oncology 09/15/20 Ha Pham MD Cardiology 09/27/20 documented as of this encounter Additional Source Comments The information contained in this document represents components of the legal health record. It is not the complete legal health record.[facility]
--- OUTSIDE RECORDS SUMMARY | 2025-07-16 09:06 | XMS_ITS | Encounter Summary ---
Author Organization [facility] Address [address] [employer] [address] [place] [address] Phone Care Team Providers Care Inspector Agricultural Commodities Name Role Phone Jose Martinez MD Unavailable [phone] Ha Pham MD Unavailable Unavailable Adriana Cox MD Primary Care Provider [phone] Encounter Details Date Type Department Care Team (Late st Contact Info) Description 11/20/2024 Procedure Pass [facility], Ct Scan - [address] [address] Social History Tobacco Use Types Packs/Day Years [...] on filedocumented in this encounter Care Teams Inspector Agricultural Commodities Relationship Specialty Start Date End Date Adriana Cox MD [facility] [address] [place] [address] PCP - General Internal Medicine 05/19/22 Jose Martinez MD [address] [place] [address] [email or web address] Primary Oncologist Medical Oncology 09/15/20 Ha Pham MD Cardiology 09/27/20 documented as of this encounter Additional Source Comments The information contained in this document represents components of the legal health record. It is not the complete legal health record.[facility]
--- OUTSIDE RECORDS SUMMARY | 2025-07-16 09:06 | XMS_ITS | Encounter Summary ---
Author Organization [facility] Address [address] [address] Phone Care Team Providers Care Billet Straightener Name Role Phone Adriana Cox MD Primary Care Provider [phone] Jose Martinez MD Unavailable [phone] Ha Pham MD Unavailable Unavailable Adriana Cox MD Primary Care Provider [phone] Encounter Details Date Type Department Care Team (Late st Contact Info) Description 08/30/2020 Ancillary Orders [facility] [place] [address] [place] [address] Devin Xavier MD [address] [place] [address] [address] [place] [address] [email or web address] Lung nodule Social History Tobacco Use Types Packs/Day Years Used Date Smoking Tobacco: Former Cigarettes 0.3 23 1 960 - 1983 Smokeless Tobacco: Never [...] documented as of this encounter Visit Diagnoses Diagnosis Lung nodule Other diseases of lung, not elsewhere classified documented in this encounter Care Teams Billet Straightener Relationship Specialty Start Date End Date Adriana Cox MD [address] [facility] [place] [address] PCP - General Internal Medicine 08/18/20 05/18/22 Adriana Cox MD [address] [facility] [place] [address] PCP - General Internal Medicine 05/19/22 Jose Martinez MD [address] [place] [id number] [email or web address] Primary Oncologist Medical Oncology 09/15/20 Ha Pham MD Cardiology 09/27/20 documented as of this encounter Additional Source Comments The information contained in this document represents components of the legal health record. It is not the complete legal health record.[facility]
--- OUTSIDE RECORDS SUMMARY | 2025-07-16 09:06 | XMS_ITS | Encounter Summary ---
Author Organization [facility] Address [address] [employer] [address] [address] Phone Care Team Providers Care Sane Rn Name Role Phone Unknown, Unknown Primary Care Provider Adriana Méndez MD Primary Care Provider [phone] Jose Martinez MD Unavailable [phone] Ha Pham MD Unavailable Unavailable Adriana Cox MD Primary Care Provider [phone] Encounter Details Date Type Department Care Team (Late st Contact Info) Description 08/17/2020 Procedure Pass [facility] Imaging - RF/IR [address] [place] [address] Social History Tobacco Use Types Packs/Day Years [...] on filedocumented in this encounter Care Teams Sane Rn Relationship Specialty Start Date End Date Unknown, Unknown, MD PCP - General 08/16/20 08/17/20 Adriana Cox MD [address] [facility] [place] [address] PCP - General Internal Medicine 08/18/20 05/18/22 Adriana Cox MD [facility] [place] [address] PCP - General Internal Medicine 05/19/22 Jose Martinez MD [address] [place] [id number] [email or web address] Primary Oncologist Medical Oncology 09/15/20 Ha Pham MD Cardiology 09/27/20 documented as of this encounter Additional Source Comments The information contained in this document represents components of the legal health record. It is not the complete legal health record.[facility]
--- OUTSIDE RECORDS SUMMARY | 2025-07-16 09:06 | XMS_ITS | Encounter Summary ---
Author Organization [facility] Address [address] [place] [address] Phone Care Team Providers Care Elementary [employer] Counselor Name Role Phone Jose Martinez MD Unavailable [phone] Ha Pham MD Unavailable Unavailable Adriana Cox MD Primary Care Provider [phone] Encounter Details Date Type Department Care Team (Late st Contact Info) Description 05/30/2023 Procedure Pass [facility] Ct Scan - [address] [address] Social History Tobacco Use Types Packs/Day Years [...] on filedocumented in this encounter Care Teams Elementary [employer] Counselor Relationship Specialty Start Date End Date Adriana Cox MD [facility] [place] [address] PCP - General Internal Medicine 05/19/22 Jose Martinez MD [address] [place] [id number] [email or web address] Primary Oncologist Medical Oncology 09/15/20 Ha Pham MD Cardiology 09/27/20 documented as of this encounter Additional Source Comments The information contained in this document represents components of the legal health record. It is not the complete legal health record.[facility]
--- OUTSIDE RECORDS SUMMARY | 2025-07-16 09:06 | XMS_ITS | Encounter Summary ---
Author Organization [facility] Address [address] [employer] [address] [place] [address] Phone Care Team Providers Care Packer Inspector Name Role Phone Adriana Cox MD Primary Care Provider [phone] Jose Martinez MD Unavailable [phone] Ha Pham MD Unavailable Unavailable Adriana Cox MD Primary Care Provider [phone] Encounter Details Date Type Department Care Team (Late st Contact Info) Description 11/03/2020 Procedure Pass [facility] [address] [place] [id number] Social History Tobacco Use Types Packs/Day Years [...] documented as of this encounter Functional Status * Calculated C-SSRS Risk Score (Lifetime/Recent) Answer Date of Assessment Author No Risk Indicated 11/03/2020 4:44 PM EST Iman العراقي RN * Farner Suicide Severity Rating Scale (Screener/Recent Self-Report) Question Answer Date of Assessment Author 1. Wish to be (Past 1 Month) No 11/03/2020 4:44 PM Talha Randle RN 2. Non-Specific Active Suicidal Thoughts (Past 1 Month) No 11/03/2020 4:44 PM Talha Randle, KEO 6. Suicidal Behavior (Lifetime) No 11/03/2020 4:44 PM Talha Randle RN documented as of this encounter Plan of Treatment Not on file documented as of this encounter Visit Diagnoses Not on filedocumented in this encounter Care Teams Packer Inspector Relationship Specialty Start Date End Date Adriana Cox MD [address] [facility] [place] [address] PCP - General Internal Medicine 08/18/20 05/18/22 Adriana Cox MD [address] [facility] [place] [address] PCP - General Internal Medicine 05/19/22 Jose Martinez MD [address] [place] [phone] [email or web address] Primary Oncologist Medical Oncology 09/15/20 Ha Pham MD Cardiology 09/27/20 documented as of this encounter Additional Source Comments The information contained in this document represents components of the legal health record. It is not the complete legal health record.[facility]
== END 2025-07-16 09:04 | disposition home or self-care (01) ==
LOC: HO.HMCC 08:28
PROVIDERS: PCP Internal Medicine; Visit Provider Internal Medicine
DX: Z00.00 Encounter for general adult medical examination without abnormal findings (principal); N18.30 Chronic kidney disease, stage 3 unspecified; I48.91 Unspecified atrial fibrillation; C34.90 Malignant neoplasm of unspecified part of unspecified bronchus or lung; C64.9 Malignant neoplasm of unspecified kidney, except renal pelvis; D64.9 Anemia, unspecified; R26.89 Other abnormalities of gait and mobility; M19.90 Unspecified osteoarthritis, unspecified site

== ENCOUNTER 2025-07-16 08:27 | Outpatient (REF) | payer MEDICARE, SELFPAY ==
[2025-07-16 13:20] LABS: MANUAL DIFF FLAG NO
[2025-07-16 13:41] LABS: Hematocrit 37.2 % (42.0-52.0); Hemoglobin 12.1 g/dl (14.0-18.0); Imm Gran Abs Auto 0.04 X10*3/uL (0.00-0.03); Imm Gran Pct Auto 0.5 % (0.0-0.4); Lymphocytes Absolute Auto 1.2 X10*3/uL (1.2-4.9); Mean Corpuscular HGB Conc 32.5 g/dl (31.0-36.0); Mean Corpuscular Hemoglobin 31.1 pg (27.0-33.0); Mean Corpuscular Volume 95.6 fL (80.0-98.0); NRBC Abs Auto 0.000 X10*3/uL (0.0-0.012); NRBC Pct Auto 0.0 /100WBC (0.0-0.2); Platelet Count 177 X10*3/uL (160-400); Red Blood Count 3.89 X10*6/uL (4.60-5.80); White Blood Count 7.4 X10*3/uL (4.8-10.8)
[2025-07-16 13:46] LABS: Alanine Aminotransferase 26 U/L (0-40); Albumin Level 4.2 g/dL (3.5-5.0); Alkaline Phosphatase 70 U/L (39-117); Anion Gap 11 (12-20); Aspartate Amino Transferase 26 U/L (5-37); Blood Urea Nitrogen 30 mg/dL (9-16); Calcium 8.9 mg/dL (8.4-10.2); Carbon Dioxide 26 mmol/L (22-29); Chloride 107 mmol/L (96-108); Estimated Glomerular Filt Rate 42; Iron 97 mcg/dL (45-160); Percent Iron Saturation 37 % (15-50); Potassium 4.8 mmol/L (3.3-5.1); Sodium 139 mmol/L (135-145); Total Iron Binding Capacity 263 mcg/dL (228-428); Total Protein 6.3 g/dL (6.5-8.0); Unsaturated Iron Binding 166 ug/dL; Uric Acid 8.3 mg/dL (3.4-7.0)
[2025-07-16 14:11] LABS: Folate > 20.0 ng/mL (> or = 4.0); Vitamin B12 773 pg/mL (200-900)
== END 2025-07-16 08:28 | disposition home or self-care (01) ==
LOC: HO.HMGCLDS 08:27
PROVIDERS: PCP Internal Medicine; Visit Provider Internal Medicine
DX: N18.30 Chronic kidney disease, stage 3 unspecified (principal); D64.9 Anemia, unspecified; R26.89 Other abnormalities of gait and mobility; I48.91 Unspecified atrial fibrillation; C34.90 Malignant neoplasm of unspecified part of unspecified bronchus or lung; C64.9 Malignant neoplasm of unspecified kidney, except renal pelvis; M19.90 Unspecified osteoarthritis, unspecified site; Z79.01 Long term (current) use of anticoagulants; Z79.899 Other long term (current) drug therapy
CPT/HCPCS: 36415; 80053; 82607; 82746; 82784; 83540; 84550; 85025; 86334; 96127; 99397